=== PATIENT | female | born 1980 | race Caucasian/White ===

== ENCOUNTER 2016-11-15 14:12 | Inpatient (IN) | payer MEDICAID, OTHER ==
[2016-11-15] VITALS (10 sets, daily range): BP systolic 124–160; BP diastolic 80–90; PULSE 72–91; RESP 17–19; TEMP 97.6–98.3; O2SAT 96–99
[~2016-11-15 14:12] MED LIST: DICL75 PO; HYDR-3533 PO
--- NOTE | 2016-11-15 14:24 | PD ---
HPI Chief Complaint: Chest Pain Time Seen by Provider: 14:24 Travel History International Travel<30 days: No Contact w/Intl Traveler<30days: No Traveled to known affect area: No History of Present Illness HPI 36-year-old female came to the emergency room with history of chest pain on the left side of her chest radiating down her left arm since yesterday. Patient says the pain has been on and off. No aggravating or relieving factors. Currently she says the pain is 5 out of 10. Like an elephant sitting on her chest. Patient is a heavy smoker. There is a strong family history of coronary artery disease. Her brother of heart attack. Currently her vitals are stable. [facility] Past Medical History Narrative Medical List of her past medical, surgical and social and family history was reviewed from the nursing note. Asthma: Yes (CHILD) Diminished Hearing: No Migraines: Yes Thyroid Disease: Yes (HYPOTHYROID) : 1 Para: 1 Past Surgical History Abdominal Surgery: Yes Cardiac Surgery: No Section: Yes Cholecystectomy: Yes Ear Surgery: No Endocrine Surgery: No Eye Surgery: No Genitourinary Surgery: No Gynecologic Surgery: Yes Oral Surgery: No Prostatectomy: No Thoracic Surgery: No Other Surgery: Yes (GALLBLADDER) Social History Alcohol Use: No Tobacco Use: Yes (PACK A DAY) Substance Use: No Allergies-Medications (Allergen,Severity, Reaction): Coded Allergies: No Known Allergies (Verified , 06/09/14) Comments No known drug allergies. Reported Meds & Prescriptions Reported Meds & Active Scripts Active Diclofenac Sodium 75 Mg Tab 75 Mg PO BID PRN Lortab 5 mg/325 mg (Hydrocodone/Acetaminophen 5 mg/325 mg) 1 Tab 1 Tab PO Q6H PRN Narrative Medication List of her home medications reviewed from the nursing note. Review of Systems Except as stated in HPI: all other systems reviewed are Neg Physical Exam Narrative GENERAL: Awake, alert, anxious, moderate distress SKIN: Focused skin assessment warm/dry. Pale HEAD: Atraumatic. Normocephalic. EYES: Pupils equal and round. No scleral icterus. No injection or drainage. ENT: No nasal bleeding or discharge. Mucous membranes pink and moist. NECK: Trachea midline. No JVD. CARDIOVASCULAR: Regular rate and rhythm. No murmur appreciated. RESPIRATORY: No accessory muscle use. Clear to auscultation. Breath sounds equal bilaterally. GASTROINTESTINAL: Abdomen soft, non-tender, nondistended. Hepatic and splenic margins not palpable. MUSCULOSKELETAL: No obvious deformities. No clubbing. No cyanosis. No edema. NEUROLOGICAL: Awake and alert. No obvious cranial nerve deficits. Motor grossly within normal limits. Normal speech. PSYCHIATRIC: Appropriate mood and affect; insight and judgment normal. Data Data Last Documented VS Vital Signs Date Time Temp Pulse Resp B/P Pulse Ox O2 Delivery O2 Flow Rate FiO2 11/15/16 14:32 97 Room Air 11/15/16 14:15 97.8 91 17 160/90 Orders Electrocardiogram (11/15/16 ) Electrocardiogram (11/15/16 14:30) Basic Metabolic Panel (Bmp) (11/15/16 14:30) Ckmb (Isoenzyme) Profile (11/15/16 14:30) Complete Blood Count With Diff (11/15/16 14:30) D-Dimer (11/15/16 14:30) Magnesium (Mg) (11/15/16 14:30) Prothrombin Time / Inr (Pt) (11/15/16 14:30) Act Partial Throm Time (Ptt) (11/15/16 14:30) Troponin I (11/15/16 14:30) Chest, Single Ap (11/15/16 14:30) Ecg Monitoring (11/15/16 14:30) Bilateral Bp Monitoring (11/15/16 14:30) Iv Access Insert/Monitor (11/15/16 14:30) Oximetry (11/15/16 14:30) Oxygen Administration (11/15/16 14:30) Sodium Chloride 0.9% Flush (Ns Flush) (11/15/16 14:30) Nitroglycerin Sl (Nitrostat Sl) (11/15/16 14:30) Heparin Inj (Heparin Inj) (11/15/16 15:05) Heparin Inj (Heparin Inj) (11/15/16 15:06) Admit Order (Ed Use Only) (11/15/16 15:18) Labs Laboratory Tests Test 11/15/16 14:45 White Blood Count 12.4 TH/MM3 Red Blood Count 4.71 MIL/MM3 Hemoglobin 14.0 GM/DL Hematocrit 42.5 % Mean Corpuscular Volume 90.2 FL Mean Corpuscular Hemoglobin 29.7 PG Mean Corpuscular Hemoglobin 32.9 % Concent Red Cell Distribution Width 13.4 % Platelet Count 206 TH/MM3 Mean Platelet Volume 8.9 FL Neutrophils (%) (Auto) 63.1 % Lymphocytes (%) (Auto) 27.4 % Monocytes (%) (Auto) 5.9 % Eosinophils (%) (Auto) 3.1 % Basophils (%) (Auto) 0.5 % Neutrophils # (Auto) 7.8 TH/MM3 Lymphocytes # (Auto) 3.4 TH/MM3 Monocytes # (Auto) 0.7 TH/MM3 Eosinophils # (Auto) 0.4 TH/MM3 Basophils # (Auto) 0.1 TH/MM3 CBC Comment DIFF FINAL Differential Comment Prothrombin Time 11.0 SEC Prothromb Time International 1.0 RATIO Ratio Activated Partial 30.3 SEC Thromboplast Time D-Dimer Quantitative (PE/DVT) 0.28 MG/L FEU Sodium Level 138 MEQ/L Potassium Level 3.8 MEQ/L Chloride Level 105 MEQ/L Carbon Dioxide Level 26.1 MEQ/L Anion Gap 7 MEQ/L Blood Urea Nitrogen 9 MG/DL Creatinine 0.73 MG/DL Estimat Glomerular Filtration 91 ML/MIN Rate Random Glucose 101 MG/DL Calcium Level 8.8 MG/DL Magnesium Level 2.1 MG/DL Total Creatine Kinase 59 U/L Troponin I 0.05 NG/ML MDM Medical Decision Making Medical Screen Exam Complete: Yes Emergency Medical Condition: Yes Medical Record Reviewed: Yes Interpretation(s) Twelve-lead EKG was reviewed by me. Normal sinus rhythm, normal axis, nonspecific ST-T wave changes. Heart rate of 72 bpm. Differential Diagnosis Non-STEMI, ACS, PE Narrative Course 3:12 PM patient chest pain just got worse. A repeat EKG was done which shows inferior lead ST elevations. I contacted Dr. Urrutia who is on-call for STEMI. Patient will be going to the [facility] emerg[facility]. Catheter team has been called. Critical Care Narrative Aggregate critical care time was 30 minutes. Time to perform other separately billable procedures was not included in the critical care time. My time did not include minutes spent treating any other patients simultaneously or on activities that did not directly contribute to the patient's treatment. The services I provided to this patient were to treat and/or prevent clinically significant deterioration that could result in: STEMI, heparin bolus I provided critical care services requiring my management, as noted below: Chart data review, documentation time, medication orders and management, vital sign assessments/reviewing monitor data, ordering and reviewing lab tests, ordering and interpreting/reviewing x-rays and diagnostic studies, care of the patient and discussion of the patient with the admitting physicians. Procedures EKG Prior to Arrival: No Physician Communication Physician Communication Dr. Urrutia Diagnosis Primary Impression: STEMI (ST elevation myocardial infarction) Qualified Code: I21.3 - ST elevation myocardial infarction (STEMI), unspecified artery Admitting Information Admitting Physician Requests: Admit Jaleesa Livingston MD November 15, 2016 14:24
[2016-11-15] MEDS ORDERED: SODIUM CHLORIDE 0.9% FLUSH 10 ML FLUSH IVF PRN (14:30)
[2016-11-15] MEDS ORDERED: NITROGLYCERIN 0.4 MG SL 25 TABS/BTL SL ONE (14:30)
--- NOTE | 2016-11-15 14:47 | RADRPT ---
EXAM DATE/TIME: 11/15/2016 14:42 [place] COMPARISON: CHEST SINGLE AP, April 23, 2013, 16:03. INDICATIONS : Upper chest pain. MEDICAL HISTORY : None. SURGICAL HISTORY : None. ENCOUNTER: Initial ACUITY: 1 day PAIN SCORE: 8/10 LOCATION: Bilateral upper chest FINDINGS: A single view of the chest demonstrates the lungs to be symmetrically aerated without evidence of mas s, infiltrate or effusion. The cardiomediastinal contours are unremarkable. Osseous structures are intact. CONCLUSION: No acute disease. Macho Joshua MD on November 15, 2016 at 14:45 Board Certified Radiologist. This report was verified electronically.
[2016-11-15 14:57] LABS: AUTOMATED NEUTROPHIL # 7.8 TH/MM3 (1.8-7.7); BASOPHIL # 0.1 TH/MM3 (0-0.2); BASOPHIL % 0.5 % (0.0-2.0); EOSINOPHIL # 0.4 TH/MM3 (0-0.4); EOSINOPHIL % 3.1 % (0.0-4.0); HEMATOCRIT 42.5 % (35.0-46.0); HEMO FLAGS DIFF FINAL; LYMPH % 27.4 % (9.0-44.0); LYMPHOCYTE # 3.4 TH/MM3 (1.0-4.8); MEAN CELL VOLUME 90.2 FL (80.0-100.0); MEAN CORPUSCULAR HEMOGLOBIN 29.7 PG (27.0-34.0); MEAN CORPUSCULAR HGB CONC 32.9 % (32.0-36.0); MONO % 5.9 % (0.0-8.0); NEUT % 63.1 % (16.0-70.0); PLATELET COUNT 206 TH/MM3 (150-450); RED BLOOD COUNT 4.71 MIL/MM3 (4.00-5.30); RED CELL DISTRIBUTION WIDTH 13.4 % (11.6-17.2); WHITE BLOOD COUNT 12.4 TH/MM3 (4.0-11.0)
[2016-11-15] MEDS ORDERED: HEPARIN SODIUM - IV 10,000 UNITS/10 ML VIAL ONE (15:05)
[2016-11-15] MEDS ORDERED: HEPARIN SODIUM - IV 10,000 UNITS/10 ML VIAL IV STA (15:06)
[2016-11-15 15:19] LABS: BICARBONATE 26.1 MEQ/L (21.0-32.0); MAGNESIUM 2.1 MG/DL (1.5-2.5); POTASSIUM 3.8 MEQ/L (3.5-5.1)
[2016-11-15] MEDS ORDERED: IOHEXOL 350 MG/ML 100 ML BTL (for Cath Lab) OTHER ONE (15:30)
[2016-11-15] MEDS ORDERED: HEPARIN-NS/PF INJ 500 ML ONE (15:39)
[2016-11-15 15:40] LABS: APTT (PATIENT) 30.3 SEC (24.3-30.1)
[2016-11-15] MEDS ORDERED: MIDAZOLAM HCL 2 MG/2 ML VIAL ONE (15:42)
[2016-11-15] MEDS ORDERED: STERILE WATER FOR INJECTION 10 ML VIAL ONE (16:02)
[2016-11-15] MEDS ORDERED: BIVALIRUDIN 250 MG VIAL ONE (16:02)
[2016-11-15] MEDS ORDERED: NITROGLYCERIN INJ 5 ML ONE (16:30)
[2016-11-15] MEDS ORDERED: NITROGLYCERIN-DEXTROSE INJ 250 ML ONE (16:30)
[2016-11-15] MEDS ORDERED: TICAGRELOR 90 MG TAB PO ONE (16:33)
[2016-11-15] MEDS ORDERED: BIVALIRUDIN INJ 250 MG in SODIUM CHLORIDE 0.9% INJ 50 ML IV SCH (16:50)
[2016-11-15] MEDS ORDERED: SODIUM CHLOR 0.9% 1000 ML INJ 1,000 ML IV SCH (16:50)
--- NOTE | 2016-11-15 16:59 | CATHPROC ---
[employer] HIS Report Study Information Study Number Admission Scheduled Start Study Start [id number] 11/15/2016 11/15/2016 Nov 15 2016 3:48PM Referring Institution Admit Source Facility Department 1 Emergency department [facility] - Occ Ther Physician and Clinical Staff Initial Miguel Ángel Mccollum Volunteer Services Director Dayne Fu,Marina García RN Recorder Alissa Sharma,(R) Scrub Phill Carlisle RCIS(BS) Procedures Performed Procedure Location (Site) Vessel Name Angiogram LV LV Ventricle Coronary Angiograms LCA Left Coronary Coronary Angiograms RCA Right Coronary Drug Eluting Inflatio OM1 Mid CIRC L Heart Cath PTCA OM1 Mid CIRC PTCA ADD ON'S Wire insertion Fem Art (right) Femoral Art Equipment Time Compliance Engineer Products Description Size Mfg Part Number Used/Scraped WIRE, BALANCE MIDDLEWEIGHT [id number] 16:09 [employer] 190CM Used 190CM *[id number] TRANSDUCER, TRUWAVE 15:49 CURRY SOTO * [id number] Used W/STOCKCOCK [id number] *[id number] [id number] *[id number] PIGTAIL ANG. 145 INFINITI [id number] CATHETER *[id number] 16:31 DAIG/[facility]. [facility] MEDICAL ANGIOSEAL, FR6 VIP FR 6 [id number] Used [id number] 15:49 MEDLINE INDUSTRIES PACK, CCL CUSTOM * Used *[id number] 15:49 MEDLINE PACER PEN, SKIN DUAL W/ RULER * [id number] Used [id number] 16:09 MEDTRONIC BALLOON, 2.0 X 20MM EUPHORA 20MM Used *[id number] STENT, 2.75 22 RESOLUTE [id number] 16:19 MEDTRONIC 2.75 22 Used INTEGRITY RX *[id number] STENT, 2.75 22 RESOLUTE [id number] 16:20 MEDTRONIC 2.75 22 Used INTEGRITY RX *[id number] 16:09 [employer] MEDICAL 30 BECK INDEFLATOR Used *[id number] 15:49 [employer] MEDICAL SHEATH, FR6.5 PRELUDE 11CM FR 6.5 038ACT Used *[id number] 15:49 [employer] MEDICAL WIRE, 3MMJ .035 180CM 180CM [id number] Used [id number] 15:49 NAMIC MANIFOLD, 4 PORT * Used *[id number] 16:41 [employer] OMNIPAQUE, 300 MG, 100ML 100ML [id number] Used 15:49 [employer]COMED OMNIPAQUE, 350 MG, 100ML 100ML [id number] Used [id number] 15:49 [facility] BLANKET,WARM AIR CCL * Used *[id number] Equipment Model, Serial, Lot Number and Expiration Data Description Model Number Serial Number Lot Number Expiration Date STENT, 2.75 22 RESOLUTE [id number] 07-27-2018 INTEGRITY RX History: Risk Factors Family History of Hypertension Dyslipidemia Previous MO Previous Heart Failure Premature CAD Yes Yes Yes No No Prior Valve Prior PCI Prior CABG Surgery No No No Cerebrovascular Peripheral Artery Chronic Lung On Dialysis Diabetes Disease Disease Disease No No No No No History: Symptoms/Diagnosis Selection Items Chest pain History: Stress Tests Stress or Imaging Studies Performed No History: Other Disease Selection Items HTN History: Other Current Smoker Method Yes Cigarettes Labs Hgb (g/dl) Hct (%) RBC (MIL/MM3) WBC (l/cumm) Platelets (thousands) 12.00-18.00 37.00-55.00 4.80-6.20 4.80-10.80 140.00-450.00 14.0 42.5 4.7 12.4 206 Glucose (mg/dl) BUN (mg/dl) Creatinine (mg/dl) BUN:Creatinine (1:x) 60.00-110.00 8.00-20.00 0.10-9.00 10.00-20.00 101 9 0.7 12.9 Na (meq/l) K (meq/l) Cl (meq/l) CO2 (mmol/L) Ca (mg/dl) 138.00-146.00 3.80-5.10 101.00-111.00 23.00-30.00 9.00-10.50 138 3.8 105 26.1 8.8 PT (sec) PTT (sec) INR (PTT:PT) 9.40-11.40 25.10-32.70 0.50-2.00 11 30.3 1 CPK-MB (ng/ML) 0.00-7.00 Not Drawn Medication Medication Total Dose (Bolus/Oral) Medication Total Dosage/Unit 1% XYLOCAINE 20 mL ANGIOMAX BOLUS 20 mL BRILLINTA 180 mg VERSED 1 mg Medications (Bolus/Oral) Medication Time Given Dosage/Unit Administered By Reason VERSED 11/15/2016 3:52:40 PM 1 mg Dayne Fu 1 mg VERSED given in lab by Dayne Fu RN via Peripheral IV. 1% XYLOCAINE 11/15/2016 3:57:13 PM 20 mL Miguel Ángel Urrutia Patient arrived on 20 mL 1% XYLOCAINE given by Miguel Ángel Urrutia in Right Groin via Subcutaneous. Ordered by Miguel Ángel Urrutia. ANGIOMAX BOLUS 11/15/2016 4:05:39 PM 20 mL Marina Parish 20 mL ANGIOMAX BOLUS given in lab by Marina Parish, ALEX via Peripheral IV. Ordered by Miguel Ángel Urrutia . BRILLINTA 11/15/2016 4:43:54 PM 180 mg Marina Parish 180 mg BRILLINTA given in lab by Marina Parish RN in Per mouth via Oral. Ordered by Miguel Ángel Urrutia . Medication (Drip) Medication Time Given Dosage/Unit Concentration/Unit Diluent (ml) Solution ANGIOMAX DRIP 11/15/2016 4:06:58 PM 1.756 mg/kg/hr 250 mg 50 NaCl .9 1.756 mg/kg/hr ANGIOMAX DRIP given in lab by Marina Parish RN via Peripheral IV. Pump/Drip Flow = 46.6 ml/hr using NaCl .9 with a concentration of 250 mg in 50 ml. Ordered by Miguel Ángel Urrutia. IV Solutions 11/15/2016 3:54:45 PM 0 mL (IV) 500 NaCl .9 Patient arrived on IV Solutions in Right Groin via Peripheral IV. Pump/Drip Flow = 20 ml/hr using NaC l .9. Ordered by Miguel Ángel Urrutia. NITROGLYCERIN DRIP 11/15/2016 4:31:01 PM 16.667 mcg/min 50 mg 250 D5W 16.667 mcg/min NITROGLYCERIN DRIP given in lab by Marina Parish RN in Right Groin via Peripheral IV. Pump/Drip Flow = 5 ml/hr using D5W with a concentration of 50 mg in 250 ml. Ordered by Miguel Ángel Urrutia. Initial Case Assessment Cardiovascular HR Rhythm NIBP Chest Pain 80 REG-PVC 141/87 5 Edema Present Skin color Skin Mild Normal Warm Circulatory - Right Pulses Dorsalis Pedis Femoral 3 1 Scale (0,1,2,3,4,d) Circulatory - Left Pulses Dorsalis Pedis Femoral 3 1 Scale (0,1,2,3,4,d) Circulatory - Lower Extremities Color Lower Right Color Lower Left Normal Normal Neurological State Oriented to time-place- Alert Moves all extremities person Respiration - General Respiration Rate SpO2 (%) O2 (lpm) (B/min) 20 96 2 Final Case Assessment Cardiovascular HR Rhythm NIBP Chest Pain 79 REG-PVC 150/84 1 Edema Present Skin color Skin None Normal Warm Circulatory - Right Pulses Dorsalis Pedis Femoral 3 1 Scale (0,1,2,3,4,d) Circulatory - Left Pulses Dorsalis Pedis Femoral 3 1 Scale (0,1,2,3,4,d) Circulatory - Lower Extremities Color Lower Right Color Lower Left Normal Normal Neurological State Oriented to time-place- Alert Moves all extremities person Respiration - General Respiration Rate SpO2 (%) O2 (lpm) (B/min) 18 95 2 Chronological Log Time Study Chronological Log 15:30:41 Patient arrived via Bed. 15:30:42 MD arrived. 15:31:48 Patient Name, D.O.B, / Armband Verified By R.N. 15:32:52 Consent signed by the physician and the patient and verified by the Occ Ther staff. 15:33:56 Pre-op and post- op instructions given; patient acknowledges understanding of instructions. Vitals capture started with the following parameters, Patient=Adult, Interval=5 min, Initial Pr xpyxeh=359 mmHg, 15:47:37 Deflation Rate=5 mmHg 15:48:14 HR=81 bpm, HXTX=667/92 mmhg, SpO2=97.0 %, Resp=20 B/min, Pain=5, Alcon=10, Glover=3 Time Out. Correct patient, correct procedure,correct physician, ,power injector loaded or not l oaded with contrast with 15:51:48 surgical team present. Time Out Concurred by MD, individual staff and MANAGER OPERATIONS AND PROCUREMENT in procedure 15:52:40 1 mg VERSED given in lab by Dayne Fu, RN via Peripheral IV. 15:53:13 HR=81 bpm, DFNW=218/87 mmhg, SpO2=97.0 %, Resp=0 B/min, Pain=5, Alcon=10, Glover=3 15:53:20 Case Start 15:54:18 Skin Breakdown-NONE 15:54:18 Patient has been NPO for More than 6Hrs. 15:54:22 Disposable Defibrillator Pads Placed On Patient. 15:54:24 A # 20 IV was noted in the Antecubital (right). Grade = 0 15:54:36 A # 20 IV was noted in the Forearm (left). Grade = 0 Patient arrived on IV Solutions in Right Groin via Peripheral IV. Pump/Drip Flow = 20 ml/hr usi ng NaCl .9. Ordered by 15:54:45 Miguel Ángel Urrutia. 15:55:57 Bilateral groins prepped with 2% chlorhexidine, and with a 3 min. waiting time. 15:56:03 Pressure channel 1 zeroed. Assessment: Initial Case, HR=80 BPM, Rhythm=REG-PVC, FDUS=133/87 mmhg, Chest Pain=5, Edema=Mild , Color=Normal, Skin = Warm Right Pulses: Elian Ped=3, Femoral=1 Left Pulses: Elian Ped=3, Femoral=1 15:56:09 Lower Right Extremities: Color=Normal Lower Left Extremities: Color=Normal Neurological: State=Alert, Ox3, FONSECA Respiration: Resp=20 B/min, SpO2=96 %, O2=2 lpm Patient arrived on 20 mL 1% XYLOCAINE given by Miguel Ángel Urrutia in Right Groin via Subcutaneous. O rdered by Renan, 15:57:13 Miguel Ángel. 15:57:23 POWER INJECTOR LOADED NOW BY Ariadne PARISH AND VERIFIED BY Guy CARLISLE 15:57:47 Reference ECG taken 15:58:12 HR=82 bpm, BUXW=928/85 mmhg, SpO2=97.0 %, Resp=22 B/min, Pain=5, Alcon=10, Glover=3 15:59:23 Access site was Right Femoral Artery.RT 15:59:30 A WIRE, 3MMJ .035 180CM 180CM was inserted via Fem Art (right). 15:59:33 A SHEATH, FR6.5 PRELUDE 11CM FR 6.5 was advanced into the Fem Art (right) using the Percuta neous technique. Recorded Pressure: Ao, HR=80, Condition=Condition 1 16:01:44 (Aorta) Ao 128/78/100 A JL 4.0 INFINITI CATHETER FR 6 was advanced over a wire. OMNIPAQUE, 350 MG, 100ML 100ML was us ed for 16:02:02 injections. 16:02:59 The LCA was injected and visualized at various angles. OMNIPAQUE, 350 MG, 100ML 100ML used . 16:03:15 HR=74 bpm, TSJK=762/75 mmhg, SpO2=96.0 %, Resp=22 B/min, Pain=5, Alcon=10, Glover=3 16:04:31 Catheter was removed A 3DRC INFINITI CATHETER FR 6 was advanced over a wire. OMNIPAQUE, 350 MG, 100ML 100ML was used for 16:04:41 injections. 16:05:39 20 mL ANGIOMAX BOLUS given in lab by Marina Parish RN via Peripheral IV. Ordered by Miguel Ángel Christie. 16:06:15 The RCA was injected and visualized at various angles. OMNIPAQUE, 350 MG, 100ML 100ML used . 1.756 mg/kg/hr ANGIOMAX DRIP given in lab by Marina Parish RN via Peripheral IV. Pump/Drip Flow = 46.6 ml/hr 16:06:58 using NaCl .9 with a concentration of 250 mg in 50 ml. Ordered by Miguel Ángel Urrutia. 16:07:40 Catheter was removed A XB 3.5 GUIDE CATHETER FR 6 was advanced over a wire. OMNIPAQUE, 350 MG, 100ML 100ML was used for 16:08:01 injections. 16:08:12 HR=90 bpm, PHEW=260/83 mmhg, SpO2=95.0 %, Resp=25 B/min, Pain=5, Alcon=10, Glover=3 16:08:45 OMNIPAQUE, 350 MG, 100ML 100ML and 30 BECK INDEFLATOR added. 16:12:26 A WIRE, BALANCE MIDDLEWEIGHT 190CM 190CM was inserted via Fem Art (right). 16:13:11 HR=84 bpm, OVUK=271/93 mmhg, Resp=27 B/min, Pain=5, Alcon=10, Glover=3 16:13:51 Interventional wire has crossed the lesion A BALLOON, 2.0 X 20MM EUPHORA 20MM was inserted over WIRE, BALANCE MIDDLEWEIGHT 190CM 190CM via the 16:15:33 OM1 Mid. A BALLOON, 2.0 X 20MM EUPHORA 20MM over a WIRE, BALANCE MIDDLEWEIGHT 190CM 190CM in the OM1 Mid was 16:16:13 inflated using a 30 BECK INDEFLATOR at 12 beck for 30 sec. 16:18:14 HR=68 bpm, OBHW=259/70 mmhg, SpO2=95.0 %, Resp=23 B/min, Pain=5, Alcon=10, Glover=3 16:18:59 Balloon Removed. A STENT, 2.75 22 RESOLUTE INTEGRITY RX 2.75 22 was advanced through a XB 3.5 GUIDE CATHETER FR 6 over a 16:19:25 WIRE, BALANCE MIDDLEWEIGHT 190CM 190CM. A STENT, 2.75 22 RESOLUTE INTEGRITY RX 2.75 22 was deployed using a 30 BECK INDEFLATOR at 12 beck ospheres 16:20:31 for 20 seconds in the OM1 Mid. 16:23:07 Delivery device removed 16:23:11 HR=92 bpm, ZEVU=885/92 mmhg, SpO2=95 %, Resp=6 B/min, Pain=5, Alcon=10, Glover=3 16:23:11 The LCA was injected and visualized at various angles. OMNIPAQUE, 350 MG, 100ML 100ML used . 16:24:38 Wire removed 16:24:40 Catheter was removed A PIGTAIL ANG. 145 INFINITI CATHETER FR 6 was advanced over a wire. OMNIPAQUE, 350 MG, 100ML 10 0ML was 16:25:40 used for injections. Recorded Pressure: LV, HR=87, Condition=Condition 1 16:26:44 (Left Ventricle) LV 124/11/20 16:27:12 The LV was injected at 10 cc/sec for a total of 35. OMNIPAQUE, 350 MG, 100ML 100ML used. Recorded Pressure: LV, Ao, HR=79, Condition=Condition 1 16:28:06 (Left Ventricle) LV 133/14/16, (Aorta) Ao 128/74/98 16:28:15 HR=45 bpm, BSNV=652/84 mmhg, SpO2=94.0 %, Resp=22 B/min, Pain=5, Alcon=10, Glover=3 16:28:35 Catheter was removed 16:28:44 An injection in the Fem Art (right) was made through the SHEATH, FR6.5 PRELUDE 11CM FR 6.5. Assessment: Final Case, HR=79 BPM, Rhythm=REG-PVC, NNNC=262/84 mmhg, Chest Pain=1, Edema=None, Color=Normal, Skin = Warm Right Pulses: Elian Ped=3, Femoral=1 Left Pulses: Elian Ped=3, Femoral=1 16:29:49 Lower Right Extremities: Color=Normal Lower Left Extremities: Color=Normal Neurological: State=Alert, Ox3, FONSECA Respiration: Resp=18 B/min, SpO2=95 %, O2=2 lpm 16:30:36 Catheter(s) removed without difficulty 16:30:37 ANGIOSEAL, FR6 VIP FR 6 placement in the Fem Art (right) 16.667 mcg/min NITROGLYCERIN DRIP given in lab by Marina Parish, RN in Right Groin via Perip heral IV. 16:31:01 Pump/Drip Flow = 5 ml/hr using D5W with a concentration of 50 mg in 250 ml. Ordered by Miguel Ángel Urrutia. 16:33:16 HR=80 bpm, MESM=131/88 mmhg, SpO2=95.0 %, Resp=21 B/min, Pain=5, Alcon=10, Glover=3 16:35:40 Case End 16:38:13 HR=84 bpm, RORB=402/92 mmhg, SpO2=96.0 %, Resp=23 B/min, Pain=5, Alcon=10, Glover=3 16:40:24 Sterile dressing applied to site 16:40:25 No case complications noted. 16:40:25 Cine recording checked. 16:40:27 Bedside Report will be given. 16:40:28 Implantable Device card placed in patient's chart. 16:40:30 Contrast Scanned 16:43:12 HR=85 bpm, FKDY=178/94 mmhg, SpO2=94.0 %, Resp=28 B/min, Pain=5, Alcon=10, Glover=3 16:43:54 180 mg BRILLINTA given in lab by Marina Parish, RN in Per mouth via Oral. Ordered by Miguel Ángel Christie. 16:44:19 In the Fem Art (right) the SHEATH, FR6.5 PRELUDE 11CM FR 6.[address] by Phill Carlisle RCIS(BS). 16:44:43 A Left Heart Cath was performed. 16:44:46 Patient moved to stretcher 16:44:48 Clinical correlaton risk stratification. 16:48:13 HR=77 bpm, PPFC=020/94 mmhg, SpO2=95.0 %, Resp=25 B/min, Pain=5, Alcon=10, Glover=3 End Study - Contrast Media Used In Study Contrast Total Opened (mL) Total Used (mL) Total Wasted (mL) Omnipaque 125 125 0 End Study - Maximum Contrast Load Max Contrast Load (mL) 948.1 End Study - Radiation Exposure Fluoro Time (minutes) 6.4 End Study - Sheaths Sheaths Pulled By Sheath Hold Time (min) Miguel Ángel Urrutia 1 End Study - Patient Disposition Complications Transferred To Interventional Outcome No Critical Care Bed successful
[2016-11-15] MEDS ORDERED: ACETAMINOPHEN 325 MG TAB PO PRN (17:00)
[2016-11-15] MEDS ORDERED: ONDANSETRON HCL 4 MG/2 ML VIAL IV PRN (17:00)
[2016-11-15] MEDS ORDERED: oxyCODONE/ACETAMINOPHEN 5 MG/325 MG TAB PO PRN (17:00)
[2016-11-15] MEDS ORDERED: MORPHINE SULFATE 4 MG/ML INJ IV PUSH PRN (17:00)
[2016-11-15] MEDS ORDERED: TEMAZEPAM 15 MG CAP PO PRN (17:00)
--- NOTE | 2016-11-15 17:07 | MH ---
cc: DIYA CAT M.D. DATE OF ADMISSION: 11/15/2016 CHIEF COMPLAINT: Chest pain. HISTORY OF PRESENT ILLNESS: Lien Crenshaw is a 36-year-old female with an acute inferior STEMI. Initial EKG did not show S-T elevation but the second EKG showed inferior S-T elevation. She has smoked a pack a day for eighteen years. She lost a brother due to a heart attack. Both of her parents have heart disease. She was brought in for the acute onset of chest pain, the symptoms since yesterday. PAST MEDICAL HISTORY: Her past medical history includes: 1. Cholecystectomy. 2. Hypothyroidism. SOCIAL HISTORY: She is single with a son. ALLERGIES: None known. MEDICATIONS Her medications include : 1. Diclofenac. 2. Lortab. REVIEW OF SYSTEMS: Her review of systems is otherwise noncontributory. PHYSICAL EXAMINATION: GENERAL: Physical exam reveals a severely obese white female in moderate distress. VITAL SIGNS: Charted. HEAD, EYES, EARS, NOSE, THROAT: Exam unremarkable. NECK: No JVD, no bruits. CHEST: Clear to auscultation. CARDIAC: S1, S2, regular rate and rhythm without murmurs or gallops. ABDOMEN: Abdomen is severely obese. No tenderness. EXTREMITIES: Reveal no clubbing, cyanosis or edema. Pulses are intact. SKIN: Shows multiple tattoos. NEUROLOGIC: Alert and oriented. EKGS: EKG shows S-T elevation inferiorly. LABORATORY DATA: Charted. IMPRESSION: Acute inferior STEMI. The patient has had stenting of the posterolateral branch of the circumflex artery. Her ejection fraction is about 45%. PLAN: 1. Aspirin 81 milligrams plus Brilinta. 2. Will introduce TEOFILO inhibitors and beta blockers as hemodynamics permit. 3. Will initiate statin therapy. 4. Check lipid values. 5. She will be counselled to quit smoking. MD MARYANA Giron/ROEL /4:51 PM /5:02 PM
--- NOTE | 2016-11-15 17:15 | MA ---
cc: DIYA CAT M.D. DATE: 11/15/2016. PROCEDURE PERFORMED: Left heart catheterization, left ventriculography, coronary angiography, balloon angioplasty and stenting of the left posterolateral branch and right femoral angiography with Angio-Seal placement. DESCRIPTION OF THE PROCEDURE IN DETAIL: The patient was brought to the cardiac irrigation laborer under emergency conditions. Using 1% lidocaine for local anesthesia, a 6-Cameroonian sheath was inserted in the right femoral artery. Femoral pulse was weak and very deep, but this was accomplished without difficulty. A left coronary angiography was then performed using a left 4 Corina catheter. Right coronary angiography was completed using a 3DRC catheter. I then used an XB 3.5 guiding catheter to engage the left main. Intravenous Angiomax was started. I wired the circumflex with a BMW wire and predilated with a 2 mm balloon and then stented utilizing a 2.75 x 22 mm Resolute stent at 12 atmospheres. An outstanding angiographic result was achieved. Next, an angled pigtail catheter was used to measure left ventricular pressure followed by left ventriculography and then a pullback. Angiography was then obtained of the right femoral artery via the sheath followed by uncomplicated Angio-Seal placement. There were no complications. FINDINGS: 1. HEMODYNAMICS: Left ventricular pressure is 133/14 with an end-diastolic pressure of 16. Aortic pressure is 128/74 with mean of 98. 2. LEFT VENTRICULOGRAPHY: The left ventriculography shows diaphragmatic akinesis. The ejection fraction appears to be 40% to 45%, probably closer to 45% and is co-dominant. 3. CORONARY ANGIOGRAPHY: The left main coronary artery has a slight degree of irregularities. It trifurcates into the left anterior descending, a large ramus intermediate branch and a codominant circumflex vessel. The left anterior descending has about 20% ostial disease. There is also a 60% to 70% mid stenosis and an area with some tortuosity. The ramus intermediate branch has 60% to 70% ostial disease. The circumflex artery has 30% ostial disease. It gives off what looks to be an obtuse marginal branch, but it courses into the left posterolateral branch territory. It has a long 99% stenosis before the posterolateral branch. The right coronary artery is codominant. It gives off the posterior descending artery branch and AV edilberto branch. It has a 60% to 70% proximal stenosis. RESULTS OF STENTING: Following stenting of the left posterolateral branch, a 0% residual stenosis had been achieved with ROSA III flow. There was ROSA II flow at the start. CONCLUSIONS: 1. Mildly elevated left ventricular end-diastolic pressure. 2. Mildly impaired left ventricular function. 3. Four-vessel coronary artery disease involving the left anterior descending, ramus intermediate branch, circumflex artery and right coronary artery. 4. Critical stenosis of the posterolateral branch of the circumflex artery. 5. Successful drug-eluting stent of the posterolateral branch. RECOMMENDATIONS: 1. Quit smoking. 2. Aspirin and Brilinta. 3. Will introduce TEOFILO inhibitor and beta levi as hemodynamics permit. 4. Check lipid values. 5. Initiate statin therapy. Anticipated hospital stay is two to three days. MD MARYANA Giron/ROEL /4:46 PM /5:08 PM
[2016-11-15] MEDS: CARVEDILOL 3.125 MG TAB PO SCH (19:38)
[2016-11-15] MEDS ORDERED: ATORVASTATIN 10 MG TAB PO SCH (21:00)
[2016-11-16] VITALS (25 sets, daily range): BP systolic 117–133; BP diastolic 70–90; PULSE 34–97; RESP 16–18; TEMP 97.9–98.9; O2SAT 95–97
[2016-11-16 05:10] LABS: AUTOMATED NEUTROPHIL # 10.5 TH/MM3 (1.8-7.7); BASOPHIL # 0.1 TH/MM3 (0-0.2); BASOPHIL % 0.4 % (0.0-2.0); EOSINOPHIL # 0.3 TH/MM3 (0-0.4); EOSINOPHIL % 2.2 % (0.0-4.0); HEMO FLAGS DIFF FINAL; LYMPH % 20.5 % (9.0-44.0); MEAN CELL VOLUME 89.3 FL (80.0-100.0); MEAN CORPUSCULAR HGB CONC 33.6 % (32.0-36.0); MONO % 5.6 % (0.0-8.0); NEUT % 71.3 % (16.0-70.0); PLATELET COUNT 216 TH/MM3 (150-450); RED CELL DISTRIBUTION WIDTH 13.3 % (11.6-17.2); WHITE BLOOD COUNT 14.8 TH/MM3 (4.0-11.0)
[2016-11-16 05:38] LABS: ALKALINE PHOSPHATASE 94 U/L (45-117); ALT (GPT) 26 U/L (10-53); ANION GAP 7 MEQ/L (5-15); AST (GOT) 59 U/L (15-37); BICARBONATE 25.3 MEQ/L (21.0-32.0); BLOOD UREA NITROGEN 6 MG/DL (7-18); CHLORIDE 106 MEQ/L (98-107); CREATINE KINASE 464 U/L (26-192); GLOMERULAR FILTRATION RATE 99 ML/MIN (>89); HDL CHOLESTEROL 27.5 MG/DL (40.0-60.0); LDL CHOLESTEROL 146 MG/DL (0-99); POTASSIUM 3.8 MEQ/L (3.5-5.1); SODIUM (NA) 138 MEQ/L (136-145); TOTAL BILIRUBIN ADULT 0.8 MG/DL (0.2-1.0)
[2016-11-16 06:12] LABS: CKMB 57.7 NG/ML (0.5-3.6)
[2016-11-16] MEDS: LISINOPRIL 5 MG TAB PO SCH (08:10)
[2016-11-16] MEDS: TICAGRELOR 90 MG TAB PO SCH ×2 (08:10→21:18)
[2016-11-16] MEDS: CARVEDILOL 3.125 MG TAB PO SCH ×2 (08:10→21:18)
[2016-11-16] MEDS: ASPIRIN 81 MG CHEW TAB PO SCH (08:11)
[2016-11-16] MEDS ORDERED: POTASSIUM CHLORIDE 20 MEQ CONTROLLED RELEASE TAB PO ONE (09:30)
--- NOTE | 2016-11-16 09:32 | PD.CARD.PN ---
Subjective Subjective Remarks no angina, no complaints Objective Medications Current Medications Medications (Trade) Dose Ordered Sig/Pily Route Start Time Stop Time Status Last Admin (NS Flush) 2 ml UNSCH PRN IVF 11/15/16 14:30 (Tylenol) 325 mg Q4H PRN PO 11/15/16 17:00 11/15/16 19:38 (Percocet 5-325 Mg) 1 tab Q4H PRN PO 11/15/16 17:00 (Morphine Inj) 2 mg Q30M PRN IV PUSH 11/15/16 17:00 (Restoril) 15 mg HS PRN PO 11/15/16 17:00 (Aspirin Chew) 81 mg DAILY PO 11/16/16 09:00 11/16/16 08:11 (Brilinta) 90 mg BID PO 11/16/16 09:00 11/16/16 08:10 (Zofran Inj) 4 mg Q4H PRN IV 11/15/16 17:00 (Coreg) 3.125 mg BID PO 11/15/16 21:00 11/16/16 08:10 (Prinivil) 5 mg DAILY PO 11/16/16 09:00 11/16/16 08:10 (Lipitor) 10 mg HS PO 11/15/16 21:00 11/15/16 19:38 Vital Signs / I&O Vital Signs Date Time Temp Pulse Resp B/P Pulse Ox O2 Delivery O2 Flow Rate FiO2 11/16/16 06:00 77 11/16/16 05:00 69 11/16/16 04:00 74 11/16/16 03:00 98.6 73 18 132/82 97 11/16/16 03:00 74 11/16/16 02:00 70 11/16/16 01:00 67 11/16/16 00:00 65 11/15/16 23:00 98.3 73 18 129/82 96 11/15/16 23:00 82 11/15/16 22:00 78 11/15/16 21:00 72 11/15/16 20:00 72 11/15/16 19:15 98.1 77 18 124/80 98 11/15/16 19:15 75 11/15/16 18:00 85 11/15/16 17:12 97.8 82 19 125/85 96 11/15/16 17:00 97.6 82 19 125/85 96 11/15/16 17:00 77 11/15/16 15:24 24 11/15/16 14:32 97 Room Air 11/15/16 14:32 97 11/15/16 14:15 97.8 91 17 160/90 99 I/O 11/15/16 11/15/16 11/15/16 11/16/16 11/16/16 11/16/16 07:00 15:00 23:00 07:00 15:00 23:00 Intake Total 1000 ml 240 ml Output Total 2000 ml Balance 1000 ml -1760 ml Intake Oral 240 ml IV Total 1000 ml Output Urine Total 2000 ml # Voids 2 # Bowel Movements 0 Physical Exam GENERAL: Well developed, well nourished. No acute distress. HEENT: Jugular venous pressure is normal. CHEST: Lungs clear to auscultation bilaterally. Unlabored respiratory effort. CARDIAC: Regular rate and rhythm without S3, S4, or murmur. ABDOMEN: Soft, nontender, no hepatosplenomegaly. Bowel sounds present. EXTREMITIES: No clubbing, cyanosis, or edema. Right groin without bruising or hematoma Laboratory Laboratory Tests Test 11/15/16 11/16/16 14:45 04:35 White Blood Count 12.4 TH/MM3 14.8 TH/MM3 Red Blood Count 4.71 MIL/MM3 4.70 MIL/MM3 Hemoglobin 14.0 GM/DL 14.1 GM/DL Hematocrit 42.5 % 42.0 % Mean Corpuscular Volume 90.2 FL 89.3 FL Mean Corpuscular Hemoglobin 29.7 PG 30.0 PG Mean Corpuscular Hemoglobin 32.9 % 33.6 % Concent Red Cell Distribution Width 13.4 % 13.3 % Platelet Count 206 TH/MM3 216 TH/MM3 Mean Platelet Volume 8.9 FL 9.3 FL Neutrophils (%) (Auto) 63.1 % 71.3 % Lymphocytes (%) (Auto) 27.4 % 20.5 % Monocytes (%) (Auto) 5.9 % 5.6 % Eosinophils (%) (Auto) 3.1 % 2.2 % Basophils (%) (Auto) 0.5 % 0.4 % Neutrophils # (Auto) 7.8 TH/MM3 10.5 TH/MM3 Lymphocytes # (Auto) 3.4 TH/MM3 3.0 TH/MM3 Monocytes # (Auto) 0.7 TH/MM3 0.8 TH/MM3 Eosinophils # (Auto) 0.4 TH/MM3 0.3 TH/MM3 Basophils # (Auto) 0.1 TH/MM3 0.1 TH/MM3 CBC Comment DIFF FINAL DIFF FINAL Differential Comment Prothrombin Time 11.0 SEC Prothromb Time International 1.0 RATIO Ratio Activated Partial 30.3 SEC Thromboplast Time D-Dimer Quantitative (PE/DVT) 0.28 MG/L FEU Sodium Level 138 MEQ/L 138 MEQ/L Potassium Level 3.8 MEQ/L 3.8 MEQ/L Chloride Level 105 MEQ/L 106 MEQ/L Carbon Dioxide Level 26.1 MEQ/L 25.3 MEQ/L Anion Gap 7 MEQ/L 7 MEQ/L Blood Urea Nitrogen 9 MG/DL 6 MG/DL Creatinine 0.73 MG/DL 0.68 MG/DL Estimat Glomerular Filtration 91 ML/MIN 99 ML/MIN Rate Random Glucose 101 MG/DL 89 MG/DL Calcium Level 8.8 MG/DL 8.3 MG/DL Magnesium Level 2.1 MG/DL Total Creatine Kinase 59 U/L 464 U/L Troponin I 0.05 NG/ML Total Bilirubin 0.8 MG/DL Aspartate Amino Transf 59 U/L (AST/SGOT) Alanine Aminotransferase 26 U/L (ALT/SGPT) Alkaline Phosphatase 94 U/L Creatine Kinase MB 57.7 NG/ML Creatine Kinase MB % 12.4 % Total Protein 7.6 GM/DL Albumin 3.3 GM/DL Triglycerides Level 129 MG/DL Cholesterol Level 199 MG/DL LDL Cholesterol 146 MG/DL HDL Cholesterol 27.5 MG/DL Cholesterol/HDL Ratio 7.23 RATIO Imaging Last 24 hours Impressions Chest X-Ray 11/15/16 1430 Signed Impressions: Service Date/Time: Tuesday, November 15, 2016 14:42 - CONCLUSION: No acute disease. Macho Joshua MD Assessment and Plan Problem List: (1) STEMI (ST elevation myocardial infarction) Assessment and Plan: 2 weeks before return to work. No strenuous activity (2) 3-vessel coronary artery disease (3) Metabolic syndrome (4) Dyslipidemia (high LDL; low HDL) (5) Obesity Assessment and Plan: Counseled on diet (6) Tobacco abuse counseling Assessment and Plan: counseled (7) Stented coronary artery Assessment and Plan: cont ASA 81mg and Brilinta 90mg bid Assessment and Plan Probable discharge in AM Problem Qualifiers (1) STEMI (ST elevation myocardial infarction): Qualified Code: I21.3 - ST elevation myocardial infarction (STEMI), unspecified artery Miguel Ángel Urrutia MD November 16, 2016 09:32
--- NOTE | 2016-11-16 11:33 | PD.CONS ---
[facility] Reason for Consult Medical management Primary Care Physician Hola Melissa DO Diagnoses: (1) STEMI (ST elevation myocardial infarction) (2) Dyslipidemia (high LDL; low HDL) (3) Tobacco abuse (4) Morbid obesity History of Present Illness Ms. Crenshaw is a pleasant 36-year-old female with a history of tobacco use, strong family history of heart disease who presented to the emergency department on 11/15/2016 due to ongoing episodic chest pain that started on the day prior to this admission. On 11/14/2016 at around 7 PM, patient started noticing achiness on her upper chest radiating to her neck jaw and left shoulder. She did not have any nausea vomiting or diaphoresis but she felt hot. Patient's discomfort was episodic and lasted about 2-3 minutes at a time. She went to bed and slept through the night. On Wednesday she was planning to do some activities with her family. However she noticed worsening chest discomfort and each episode was longer. This prompted her to seek medical attention. On the way to the hospital ED patient complained of shortness of breath as she was walking from the parking lot to the emergency department entrance. She's never had this kind of symptoms before. Denies any fever chills cough. Denies any changes in bowel or bladder habits. Patient's initial EKG was unremarkable. However a repeat EKG showed inferior lead ST elevation. STEMI alert was called and Dr. Urrutia to patient's to cardiac catheterization lab. Drug-eluting stent was placed to the posterior lateral branch of the circumflex artery. Review of Systems Except as stated in HPI: all other systems reviewed are Neg Past Family Social History Allergies: Coded Allergies: No Known Allergies (Verified , 06/09/14) Past Medical History Migraine headache Past Surgical History , cholecystectomy Reported Medications Patient was not taking any medication on a regular basis other than Tylenol for headache. Family History Strong family history of heart disease. Mother had heart attack at age 58. Dad had heart attack in his 40s. Brother from heart attack at age 34 Social History Patient smokes 1 pack per day and has been smoking since she was 18. Denies any use of alcohol or illicit drugs. Physical Exam Vital Signs Vital Signs Date Time Temp Pulse Resp B/P Pulse Ox O2 Delivery O2 Flow Rate FiO2 11/16/16 11:12 98.9 83 18 127/84 96 5/15/17 11:12 83 11/16/16 10:04 72 11/16/16 09:56 73 11/16/16 08:03 72 11/16/16 07:39 77 11/16/16 07:39 98.9 77 18 124/90 96 11/16/16 06:00 77 11/16/16 05:00 69 11/16/16 04:00 74 11/16/16 03:00 98.6 73 18 132/82 97 11/16/16 03:00 74 11/16/16 02:00 70 11/16/16 01:00 67 11/16/16 00:00 65 11/15/16 23:00 98.3 73 18 129/82 96 11/15/16 23:00 82 11/15/16 22:00 78 11/15/16 21:00 72 11/15/16 20:00 72 11/15/16 19:15 98.1 77 18 124/80 98 11/15/16 19:15 75 11/15/16 18:00 85 11/15/16 17:12 97.8 82 19 125/85 96 11/15/16 17:00 97.6 82 19 125/85 96 11/15/16 17:00 77 11/15/16 15:24 24 11/15/16 14:32 97 Room Air 11/15/16 14:32 97 11/15/16 14:15 97.8 91 17 160/90 99 Physical Exam GENERAL: This is a well-nourished, well-developed patient, in no apparent distress. SKIN: No rashes, ecchymoses or lesions. Warm and dry. HEAD: Atraumatic. Normocephalic. No temporal or scalp tenderness. EYES: Pupils equal round and reactive. No injection or drainage. ENT: Nose without bleeding, purulent drainage or septal hematoma. Airway patent. NECK: Trachea midline. No lymphadenopathy. Supple, nontender, no meningeal signs. CARDIOVASCULAR: Regular rate and rhythm without murmurs, gallops, or rubs. No JVD. RESPIRATORY: Clear to auscultation. Breath sounds equal bilaterally. No wheezes , rales, or rhonchi. GASTROINTESTINAL: Abdomen soft, non-tender, nondistended. No guarding. MUSCULOSKELETAL: Extremities without clubbing, cyanosis, or edema. NEUROLOGICAL: Awake and alert. Cranial nerves II through XII intact. No focal neurological deficits. Normal speech. Laboratory Laboratory Tests Test 11/15/16 11/16/16 14:45 04:35 White Blood Count 12.4 14.8 Red Blood Count 4.71 4.70 Hemoglobin 14.0 14.1 Hematocrit 42.5 42.0 Mean Corpuscular Volume 90.2 89.3 Mean Corpuscular Hemoglobin 29.7 30.0 Mean Corpuscular Hemoglobin 32.9 33.6 Concent Red Cell Distribution Width 13.4 13.3 Platelet Count 206 216 Mean Platelet Volume 8.9 9.3 Neutrophils (%) (Auto) 63.1 71.3 Lymphocytes (%) (Auto) 27.4 20.5 Monocytes (%) (Auto) 5.9 5.6 Eosinophils (%) (Auto) 3.1 2.2 Basophils (%) (Auto) 0.5 0.4 Neutrophils # (Auto) 7.8 10.5 Lymphocytes # (Auto) 3.4 3.0 Monocytes # (Auto) 0.7 0.8 Eosinophils # (Auto) 0.4 0.3 Basophils # (Auto) 0.1 0.1 CBC Comment DIFF FINAL DIFF FINAL Differential Comment Prothrombin Time 11.0 Prothromb Time International 1.0 Ratio Activated Partial 30.3 Thromboplast Time D-Dimer Quantitative (PE/DVT) 0.28 Sodium Level 138 138 Potassium Level 3.8 3.8 Chloride Level 105 106 Carbon Dioxide Level 26.1 25.3 Anion Gap 7 7 Blood Urea Nitrogen 9 6 Creatinine 0.73 0.68 Estimat Glomerular Filtration 91 99 Rate Random Glucose 101 89 Calcium Level 8.8 8.3 Magnesium Level 2.1 Total Creatine Kinase 59 464 Troponin I 0.05 Total Bilirubin 0.8 Aspartate Amino Transf 59 (AST/SGOT) Alanine Aminotransferase 26 (ALT/SGPT) Alkaline Phosphatase 94 Creatine Kinase MB 57.7 Creatine Kinase MB % 12.4 Total Protein 7.6 Albumin 3.3 Triglycerides Level 129 Cholesterol Level 199 LDL Cholesterol 146 HDL Cholesterol 27.5 Cholesterol/HDL Ratio 7.23 Result Diagram: 11/16/16 0435 11/16/16 0435 Imaging Last Impressions Chest X-Ray 11/15/16 1430 Signed Impressions: Service Date/Time: Tuesday, November 15, 2016 14:42 - CONCLUSION: No acute disease. Macho Joshua MD Assessment and Plan Problem List: (1) STEMI (ST elevation myocardial infarction) ICD Code: I21.3 Status: Acute (2) Dyslipidemia (high LDL; low HDL) ICD Code: E78.4 Status: Acute (3) Morbid obesity ICD Code: E66.01 Status: Acute (4) Tobacco abuse ICD Code: Z72.0 Status: Acute Assessment and Plan Ms. Crenshaw is a 36-year-old female with a history of tobacco use, significant for history of heart disease who presented to the emergency department on 2016 due to ongoing chest pain. Her chest pain started on 11/14/2016 at around 7 PM. Her chest pain was achy in nature and radiated to her neck jaw and left shoulder. ED workup indicated STEMI and subsequently patient underwent urgent cardiac catheterization and drug-eluting stent placement to the posterior lateral branch of the circumflex artery. - STEMI - Dyslipidemia - Status post drug-eluting stent placement to the posterior lateral branch of the circumflex artery. - Continue carvedilol 3.125 mg twice a day, lisinopril 5 mg daily. - Continue aspirin 81 mg daily, Ticagrelor 90 mg twice a day. - Increase atorvastatin 10 mg daily at bedtime to 80 mg daily at bedtime. - Tobacco abuse - Morbid obesity - Counseled patient extensively regarding quitting smoking. Patient is motivated to quit smoking altogether. - Also advised patient regarding lifestyle modification with regards to morbid obesity. - Probable discharge on 11/17/2016. Patient is advised to go back to work in 2 weeks. Full code. Ambulation. Problem Qualifiers (1) STEMI (ST elevation myocardial infarction): Qualified Code: I21.3 - ST elevation myocardial infarction (STEMI), unspecified artery Moira Ponce DO November 16, 2016 11:33 am
--- NOTE | 2016-11-16 11:42 | EC ---
Study Study Date:11/16/2016 STUDY CONCLUSIONS SUMMARY - Left ventricle: The cavity size was normal. Wall thickness was normal. Systolic function was normal. The estimated ejection fraction was in the range of 50% to 55%. Wall motion was normal; there were no regional wall motion abnormalities. - Mitral valve: Mild regurgitation. - Tricuspid valve: Mild regurgitation. If LV function is below 40, please consider prescribing an ACEI or ARB or document rationale for non-use. PROCEDURE DATA STUDY STATUS: Elective. Procedure: Transthoracic echocardiography. Image quality was good. Scanning was performed from the parasternal, apical, and subcostal acoustic windows. Study completion: The patient tolerated the procedure well. Transthoracic echocardiography. M-mode, complete 2D, complete spectral Doppler, and color Doppler. Height: Height: 69in. Weight: Weight: 290.4lb. Body mass index: BMI: 43kg/m^2. Body surface area: BSA: 2.42m^2. Patient status: Inpatient. CARDIAC ANATOMY LEFT VENTRICLE: The cavity size was normal. Wall thickness was normal. Systolic function was normal. The estimated ejection fraction was in the range of 50% to 55%. Wall motion was normal; there were no regional wall motion abnormalities. AORTIC VALVE: Trileaflet; normal thickness leaflets. Doppler: Transvalvular velocity was within the normal range. There was no stenosis. No regurgitation. AORTA: Aortic root: The aortic root was normal in size. MITRAL VALVE: Structurally normal valve. Doppler: Transvalvular velocity was within the normal range. There was no evidence for stenosis. Mild regurgitation. Peak gradient: 3mm Hg (D). LEFT ATRIUM: The atrium was normal in size. RIGHT VENTRICLE: The cavity size was normal. Wall thickness was normal. PULMONIC VALVE: Doppler: Transvalvular velocity was within the normal range. There was no evidence for stenosis. No regurgitation. TRICUSPID VALVE: Structurally normal valve. Doppler: Transvalvular velocity was within the normal range. Mild regurgitation. PULMONARY ARTERY: The main pulmonary artery was normal-sized. Systolic pressure was within the normal range. RIGHT ATRIUM: The atrium was normal in size. PERICARDIUM: There was no pericardial effusion. SYSTEMIC VEINS: Inferior vena cava: The vessel was normal in size. Patient weight: 290.4lb _Ejection fraction:_ 65-75% _Fractional shortening:_ 32% up to 5Kg 5-11.5Kg 11.6-22.9Kg 23-45Kg 45-57Kg Aortic Root 7-13 <17 13-22 17-27 17-27 LA diam 6-13 <23 24-38 33-47 37-40 RVID 10-17 7-15 7-15 7-18 8-17 LVIDd 12-22 <32 24-38 33-47 37-40 LVPW 2-4 3-6 5-7 6-8 7-8 IVS 2-4 3-6 5-7 6-8 7-8 BASIC MEASUREMENTS ADULT Normal Left ventricle LV internal dimension, ED, chordal level, *56.5 mm 43-52 PLAX LV internal dimension, ES, chordal level, *44.6 mm 23-38 PLAX Fractional shortening, chordal level, PLAX *21 % >29 LV posterior wall thickness, ED 8.6 mm IVS/LVPW ratio, ED 1.26 <1.3 Ventricular septum Septal thickness, ED 10.8 mm Aortic valve Leaflet separation 20 mm 15-26 Left atrium Anterior-posterior dimension 38 mm Anterior-posterior dimension index 1.57 cm/m^2 <2.2 Right ventricle RV internal dimension, ED, PLAX 19.7 mm 19-38 BASIC MEASUREMENTS ADULT Normal Aortic valve Leaflet separation 20 mm 15-26 Aorta Root diameter, ED 35 mm 20-37 DOPPLER MEASUREMENTS ADULT Normal Aortic valve Peak velocity, S 143 cm/s Mitral valve Peak E-wave velocity 81.9 cm/s Peak A-wave velocity 80.5 cm/s Peak gradient, D 3 mm Hg Peak E/A ratio 1 Tricuspid valve Regurgitant peak velocity 189 cm/s Peak RV-RA gradient, S 14 mm Hg Maximal regurgitant velocity 189 cm/s LEGEND: Mean values are shown as u=mean value. Asterisk (*) villalobos values outside specified normal range. Prepared and signed by Franck Segundo [id number]
--- NOTE | 2016-11-16 14:14 | EKG ---
Date Performed: 11/15/2016 Time Performed: 14:28:06 PTAGE: 36 years EKG: Sinus rhythm MINIMAL ST DEPRESSION BORDERLINE ECG Since prior tracing, anterior T wave change are slightly more p rominent. PREVIOUS TRACING : 04/23/2013 15.31 DOCTOR: Magdiel Shetty Interpretating Date/Time 11/16/2016 14:12:33
--- NOTE | 2016-11-16 14:16 | EKG ---
Date Performed: 11/15/2016 Time Performed: 14:59:40 PTAGE: 36 years EKG: Sinus rhythm MARKED ST ELEVATION, CONSIDER INFERIOR INJURY ACUTE [place] Since prior tracing, inferior ST elevat ion with anterior T wave inversions are new from EKG taken only 30 minutes previous. Concern for acut e ST elevation [place]. Clinical correlation is required. PREVIOUS TRACING : 11/15/2016 14.28 DOCTOR: Magdiel Shetty Interpretating Date/Time 11/16/2016 14:14:31
--- NOTE | 2016-11-16 14:21 | EKG ---
Date Performed: 11/16/2016 Time Performed: 05:20:08 PTAGE: 36 years EKG: Sinus rhythm Prolonged QT interval Possible inferior infarct - age undetermined Anterolateral T wave changes are abnormal Since prior tracing, previously seen inferior ST elevations have resolved. Possible developm ent of small inferior T waves. Anterolateral ST changes are new. Clinical correlation is required. Ab normal ECG PREVIOUS TRACING : 11/15/2016 14.59 DOCTOR: Magdiel Shetty Interpretating Date/Time 11/16/2016 14:21:13
[2016-11-16] MEDS ORDERED: ATORVASTATIN 80 MG TAB PO SCH (21:00)
[2016-11-17] VITALS (13 sets, daily range): BP systolic 113–118; BP diastolic 70; PULSE 64–78; RESP 16–18; TEMP 97.9–98.3; O2SAT 95–97
[2016-11-17] MEDS ORDERED: ATOR1TAB18 PO (08:32)
[2016-11-17] MEDS ORDERED: LISI-519 PO (08:32)
[2016-11-17] MEDS ORDERED: BRIL90TA PO (08:32)
[2016-11-17] MEDS ORDERED: CARV3.125 PO (08:32)
[2016-11-17] MEDS ORDERED: ASPI81TA11 PO (08:32)
[2016-11-17] MEDS ORDERED: OCEA0.653 EACH NARE (08:33)
--- NOTE | 2016-11-17 08:38 | HHI.PR ---
Subjective Remarks Follow up for STEMI. Patient is currently doing well. No acute concerns. Objective Vitals Vital Signs Date Time Temp Pulse Resp B/P Pulse Ox O2 Delivery O2 Flow Rate FiO2 11/17/16 07:15 97.9 76 18 118/70 97 11/17/16 06:04 68 11/17/16 05:00 64 11/17/16 04:00 70 11/17/16 03:45 98.3 68 16 113/70 95 11/17/16 03:00 64 11/17/16 02:00 67 11/17/16 01:00 68 11/17/16 00:00 69 11/16/16 23:50 97.9 73 16 117/70 95 11/16/16 23:00 64 11/16/16 22:10 68 11/16/16 21:00 74 11/16/16 20:00 76 11/16/16 19:20 98.1 77 16 133/89 97 11/16/16 19:00 71 11/16/16 18:04 69 11/16/16 17:57 72 11/16/16 16:42 78 11/16/16 15:32 98.5 72 18 122/77 97 11/16/16 15:32 72 11/16/16 14:43 71 11/16/16 12:14 76 11/16/16 11:12 98.9 83 18 127/84 96 11/16/16 11:12 83 11/16/16 10:04 72 11/16/16 09:56 73 I/O 11/16/16 11/16/16 11/16/16 11/17/16 11/17/16 11/17/16 07:00 15:00 23:00 07:00 15:00 23:00 Intake Total 240 ml 960 ml 350 ml Output Total 2000 ml 400 ml Balance -1760 ml 960 ml -50 ml Intake Oral 240 ml 960 ml 350 ml IV Total 0 ml Output Urine Total 2000 ml 400 ml # Voids 4 3 # Bowel Movements 0 0 0 Result Diagram: 11/16/16 0435 11/16/16 0435 Imaging Last Impressions Chest X-Ray 11/15/16 1430 Signed Impressions: Service Date/Time: Tuesday, November 15, 2016 14:42 - CONCLUSION: No acute disease. Macho Joshua MD Objective Remarks GENERAL: AOX3, NAD SKIN: Warm and dry. HEAD: Normocephalic. EYES: No scleral icterus. No injection or drainage. NECK: Supple, trachea midline. No JVD or lymphadenopathy. CARDIOVASCULAR: Regular rate and rhythm without murmurs, gallops, or rubs. RESPIRATORY: Breath sounds equal bilaterally. No accessory muscle use. GASTROINTESTINAL: Abdomen soft, non-tender, nondistended. MUSCULOSKELETAL: No cyanosis, or edema. BACK: Nontender without obvious deformity. No CVA tenderness. Procedures Cardiac cath 11/15/2016 CONCLUSIONS: 1. Mildly elevated left ventricular end-diastolic pressure. 2. Mildly impaired left ventricular function. 3. Four-vessel coronary artery disease involving the left anterior descending, ramus intermediate branch, circumflex artery and right coronary artery. 4. Critical stenosis of the posterolateral branch of the circumflex artery. 5. Successful drug-eluting stent of the posterolateral branch. RECOMMENDATIONS: 1. Quit smoking. 2. Aspirin and Brilinta. 3. Will introduce TEOFILO inhibitor and beta levi as hemodynamics permit. 4. Check lipid values. 5. Initiate statin therapy. A/P Problem List: (1) STEMI (ST elevation myocardial infarction) ICD Code: I21.3 Status: Acute (2) Dyslipidemia (high LDL; low HDL) ICD Code: E78.4 Status: Acute (3) Morbid obesity ICD Code: E66.01 Status: Acute (4) Tobacco abuse ICD Code: Z72.0 Status: Acute Assessment and Plan Ms. Crenshaw is a 36-year-old female with a history of tobacco use, significant for history of heart disease who presented to the emergency department on 2016 due to ongoing chest pain. Her chest pain started on 11/14/2016 at around 7 PM. Her chest pain was achy in nature and radiated to her neck jaw and left shoulder. ED workup indicated STEMI and subsequently patient underwent urgent cardiac catheterization and drug-eluting stent placement to the posterior lateral branch of the circumflex artery. - STEMI - Dyslipidemia - Status post drug-eluting stent placement to the posterior lateral branch of the circumflex artery. - Continue carvedilol 3.125 mg twice a day, lisinopril 5 mg daily. - Continue aspirin 81 mg daily, Ticagrelor 90 mg twice a day. - Increased atorvastatin 10 mg daily at bedtime to 80 mg daily at bedtime. - Tobacco abuse - Morbid obesity - Counseled patient extensively regarding quitting smoking. Patient is motivated to quit smoking altogether. - Also advised patient regarding lifestyle modification with regards to morbid obesity. - discharge today 11/17/2016. Patient is advised to go back to work in 2 weeks. Full code. Ambulation. Discharge patient to home Condition on discharge: Improved Heart healthy Diet as tolerated Ad Corrine activity Rx written: Aspirin 81 mg daily Atorvastatin 80 mg daily at bedtime Carvedilol 3.125 mg by mouth twice a day Lisinopril 5 mg by mouth daily Ticagrelor 90 mg by mouth twice a day Saline nasal spray Follow-up with primary care physician within one week and cardiology within 2 weeks. Problem Qualifiers (1) STEMI (ST elevation myocardial infarction): Qualified Code: I21.3 - ST elevation myocardial infarction (STEMI), unspecified artery Moira Ponce DO November 17, 2016 8:38 am
[2016-11-17] MEDS: CARVEDILOL 3.125 MG TAB PO SCH (09:15)
[2016-11-17] MEDS: LISINOPRIL 5 MG TAB PO SCH (09:15)
[2016-11-17] MEDS: ASPIRIN 81 MG CHEW TAB PO SCH (09:15)
--- NOTE | 2016-11-17 09:55 | PD.CARD.PN ---
Subjective Subjective Remarks No complaints Objective Medications Current Medications Medications (Trade) Dose Ordered Sig/Pily Route Start Time Stop Time Status Last Admin (NS Flush) 2 ml UNSCH PRN IVF 11/15/16 14:30 (Tylenol) 325 mg Q4H PRN PO 11/15/16 17:00 11/15/16 19:38 (Percocet 5-325 Mg) 1 tab Q4H PRN PO 11/15/16 17:00 (Morphine Inj) 2 mg Q30M PRN IV PUSH 11/15/16 17:00 (Restoril) 15 mg HS PRN PO 11/15/16 17:00 (Aspirin Chew) 81 mg DAILY PO 11/16/16 09:00 11/17/16 09:15 (Brilinta) 90 mg BID PO 11/16/16 09:00 11/16/16 21:18 (Zofran Inj) 4 mg Q4H PRN IV 11/15/16 17:00 (Coreg) 3.125 mg BID PO 11/15/16 21:00 11/17/16 09:15 (Prinivil) 5 mg DAILY PO 11/16/16 09:00 11/17/16 09:15 (Lipitor) 80 mg HS PO 11/16/16 21:00 11/16/16 21:18 Vital Signs / I&O Vital Signs Date Time Temp Pulse Resp B/P Pulse Ox O2 Delivery O2 Flow Rate FiO2 11/17/16 07:15 97.9 76 18 118/70 97 11/17/16 07:00 65 11/17/16 06:04 68 11/17/16 05:00 64 11/17/16 04:00 70 11/17/16 03:45 98.3 68 16 113/70 95 11/17/16 03:00 64 11/17/16 02:00 67 11/17/16 01:00 68 11/17/16 00:00 69 11/16/16 23:50 97.9 73 16 117/70 95 11/16/16 23:00 64 11/16/16 22:10 68 11/16/16 21:00 74 11/16/16 20:00 76 11/16/16 19:20 98.1 77 16 133/89 97 11/16/16 19:00 71 11/16/16 18:04 69 11/16/16 17:57 72 11/16/16 16:42 78 11/16/16 15:32 98.5 72 18 122/77 97 11/16/16 15:32 72 11/16/16 14:43 71 11/16/16 12:14 76 11/16/16 11:12 98.9 83 18 127/84 96 11/16/16 11:12 83 11/16/16 10:04 72 11/16/16 09:56 73 I/O 11/16/16 11/16/16 11/16/16 11/17/16 11/17/16 11/17/16 07:00 15:00 23:00 07:00 15:00 23:00 Intake Total 240 ml 960 ml 350 ml Output Total 2000 ml 400 ml Balance -1760 ml 960 ml -50 ml Intake Oral 240 ml 960 ml 350 ml IV Total 0 ml Output Urine Total 2000 ml 400 ml # Voids 4 3 # Bowel Movements 0 0 0 Physical Exam GENERAL: Well developed, well nourished. No acute distress. HEENT: Jugular venous pressure is normal. CHEST: Lungs clear to auscultation bilaterally. Unlabored respiratory effort. CARDIAC: Regular rate and rhythm without S3, S4, or murmur. ABDOMEN: Soft, nontender, no hepatosplenomegaly. Bowel sounds present. EXTREMITIES: No clubbing, cyanosis, or edema. Right groin without bruising or hematoma Laboratory Laboratory Tests Test 11/15/16 11/16/16 14:45 04:35 Prothrombin Time 11.0 SEC Prothromb Time International 1.0 RATIO Ratio Activated Partial 30.3 SEC Thromboplast Time D-Dimer Quantitative (PE/DVT) 0.28 MG/L FEU Magnesium Level 2.1 MG/DL Troponin I 0.05 NG/ML White Blood Count 14.8 TH/MM3 Red Blood Count 4.70 MIL/MM3 Hemoglobin 14.1 GM/DL Hematocrit 42.0 % Mean Corpuscular Volume 89.3 FL Mean Corpuscular Hemoglobin 30.0 PG Mean Corpuscular Hemoglobin 33.6 % Concent Red Cell Distribution Width 13.3 % Platelet Count 216 TH/MM3 Mean Platelet Volume 9.3 FL Neutrophils (%) (Auto) 71.3 % Lymphocytes (%) (Auto) 20.5 % Monocytes (%) (Auto) 5.6 % Eosinophils (%) (Auto) 2.2 % Basophils (%) (Auto) 0.4 % Neutrophils # (Auto) 10.5 TH/MM3 Lymphocytes # (Auto) 3.0 TH/MM3 Monocytes # (Auto) 0.8 TH/MM3 Eosinophils # (Auto) 0.3 TH/MM3 Basophils # (Auto) 0.1 TH/MM3 CBC Comment DIFF FINAL Differential Comment Sodium Level 138 MEQ/L Potassium Level 3.8 MEQ/L Chloride Level 106 MEQ/L Carbon Dioxide Level 25.3 MEQ/L Anion Gap 7 MEQ/L Blood Urea Nitrogen 6 MG/DL Creatinine 0.68 MG/DL Estimat Glomerular Filtration 99 ML/MIN Rate Random Glucose 89 MG/DL Calcium Level 8.3 MG/DL Total Bilirubin 0.8 MG/DL Aspartate Amino Transf 59 U/L (AST/SGOT) Alanine Aminotransferase 26 U/L (ALT/SGPT) Alkaline Phosphatase 94 U/L Total Creatine Kinase 464 U/L Creatine Kinase MB 57.7 NG/ML Creatine Kinase MB % 12.4 % Total Protein 7.6 GM/DL Albumin 3.3 GM/DL Triglycerides Level 129 MG/DL Cholesterol Level 199 MG/DL LDL Cholesterol 146 MG/DL HDL Cholesterol 27.5 MG/DL Cholesterol/HDL Ratio 7.23 RATIO Assessment and Plan Problem List: (1) STEMI (ST elevation myocardial infarction) (2) 3-vessel coronary artery disease (3) Metabolic syndrome (4) Dyslipidemia (high LDL; low HDL) (5) Obesity (6) Tobacco abuse counseling (7) Stented coronary artery Assessment and Plan OK to discharge home. Problem Qualifiers (1) STEMI (ST elevation myocardial infarction): Qualified Code: I21.3 - ST elevation myocardial infarction (STEMI), unspecified artery Miguel Ángel Urrutia MD November 17, 2016 09:55
[2016-11-17] MEDS: TICAGRELOR 90 MG TAB PO SCH (10:25)
== END 2016-11-17 10:58 | disposition home or self-care (01) | DRG 247 ==
LOC: NEPE 14:12 → NEDA 15:20 → HCIN 16:57
PROVIDERS: ADMIT Internal Medicine Cardiovascular Disease; ATTEND Hospitalist
PROC: 027034Z Dilation of Coronary Artery, One Artery with Drug-eluting Intraluminal Device, Percutaneous Approach (ICD-10-PCS; principal; 2016-11-15)
PROC: 4A023N7 Measurement of Cardiac Sampling and Pressure, Left Heart, Percutaneous Approach (ICD-10-PCS; 2016-11-15)
PROC: B2111ZZ Fluoroscopy of Multiple Coronary Arteries using Low Osmolar Contrast (ICD-10-PCS; 2016-11-15)
PROC: B2151ZZ Fluoroscopy of Left Heart using Low Osmolar Contrast (ICD-10-PCS; 2016-11-15)
DX: I21.19 ST elevation (STEMI) myocardial infarction involving other coronary artery of inferior wall (principal); E88.81 Metabolic syndrome and other insulin resistance; E66.01 Morbid (severe) obesity due to excess calories; I25.10 Atherosclerotic heart disease of native coronary artery without angina pectoris; E78.5 Hyperlipidemia, unspecified; F17.210 Nicotine dependence, cigarettes, uncomplicated; Z82.49 Family history of ischemic heart disease and other diseases of the circulatory system; Z71.3 Dietary counseling and surveillance
CPT/HCPCS: 71010; 80048; 80053; 80061; 82550; 82552; 83735; 84484; 85025; 85379; 85610; 85730; 92928; 93005; 93306; 93458; 96374; C1725; C1760; C1769; C1874; C1887; C1893; G0269; J0583; J1644; J2250; J7030; Q9967

== ENCOUNTER 2017-06-28 17:26 | Observation (INO) | payer OTHER, MEDICAID ==
[~2017-06-28] VITALS: Ht 175.3 cm; Wt 120.0 kg
[~2017-06-28 17:26] MED LIST changes: +ASPI81TA23 PO; +ATOR80TA45 PO; +BRIL90TA PO; +CARV3.125 PO; -DICL75 PO; +LISI-519 PO; +OCEA0.653 EACH NARE
[2017-06-28 17:31] VITALS: BP 142/89; PULSE 67; RESP 16; TEMP 98.7; O2SAT 99
[2017-06-28] MEDS ORDERED: LEVO75TA3 PO (17:40)
[2017-06-28] MEDS ORDERED: ATOR20TA15 PO (17:40)
[2017-06-28] MEDS ORDERED: BUPR100T4 PO (17:40)
[2017-06-28] MEDS ORDERED: METF500T PO (17:40)
--- NOTE | 2017-06-28 17:40 | PD ---
HPI Chief Complaint: Chest Pain Time Seen by Provider: 17:40 Travel History International Travel<30 days: No Contact w/Intl Traveler<30days: No Traveled to known affect area: No History of Present Illness HPI 36-year-old female history of CAD, stenting of the posterior lateral branch in November of this year, presents emergency department for evaluation of left posterior shoulder pain. Patient states she has been nauseous intermittently for the last 2 days with bouts of light headedness. She developed this left shoulder pain up into her neck that was similar prior to her most recent MT. She states she chewed an aspirin and the throat sensation has since alleviated. Pain persists in her left shoulder. She states she does have history of shoulder injury, however this is not consistent with her shoulder injury pain. Denies any new injury. Denies any recent illnesses, fever, or chills. She has no other symptoms to report. 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 Urrutia in during her stenting November 15, 2016, the patient was found to have four-vessel cardiac arterial disease. PFSH Past Medical History Hx Anticoagulant Therapy: Yes Arthritis: Yes Asthma: Yes (CHILD) Anxiety: Yes Depression: No Cancer: No Cardiovascular Problems: Yes (MT 2017) Chest Pain: Yes Diabetes: No Diminished Hearing: No Genitourinary: No Neurologic: No Reproductive: No Migraines: Yes Sleep Apnea: No Thyroid Disease: Yes (HYPOTHYROID) : 1 Para: 1 Past Surgical History Abdominal Surgery: Yes Cardiac Surgery: No Section: Yes Cholecystectomy: Yes Ear Surgery: No Endocrine Surgery: No Eye Surgery: No Genitourinary Surgery: No Gynecologic Surgery: Yes Oral Surgery: No Prostatectomy: No Thoracic Surgery: No Other Surgery: Yes (GALLBLADDER) Social History Alcohol Use: Yes Tobacco Use: Yes Substance Use: No Allergies-Medications (Allergen,Severity, Reaction): Coded Allergies: No Known Allergies (Verified Adverse Reaction, Unknown, 06/28/17) Reported Meds & Prescriptions Reported Meds & Active Scripts Active Aspirin EC (Aspirin) 81 Mg Tabdr 81 Mg PO DAILY Brilinta (Ticagrelor) 90 Mg Tab 90 Mg PO BID Lisinopril 5 Mg Tab 5 Mg PO DAILY Coreg (Carvedilol) 3.125 Mg Tab 3.125 Mg PO BID Reported Atorvastatin (Atorvastatin Calcium) 20 Mg Tab 20 Mg PO HS Bupropion HCl 100 Mg Tab 100 Mg PO BID Metformin (Metformin HCl) 500 Mg Tab 500 Mg PO BIDPC Levothyroxine (Levothyroxine Sodium) 75 Mcg Tab 75 Mcg PO DAILY Review of Systems Except as stated in HPI: all other systems reviewed are Neg Physical Exam Narrative GENERAL: Well-nourished female patient, sitting up in bed in no acute distress. SKIN: Focused skin assessment warm/dry. HEAD: Atraumatic. Normocephalic. EYES: Pupils equal and round. No scleral icterus. No injection or drainage. ENT: No nasal bleeding or discharge. Mucous membranes pink and moist. NECK: Trachea midline. No JVD. CARDIOVASCULAR: Regular rate and rhythm. No murmur appreciated. RESPIRATORY: No accessory muscle use. Clear to auscultation. Breath sounds equal bilaterally. GASTROINTESTINAL: Abdomen soft, non-tender, nondistended. Hepatic and splenic margins not palpable. MUSCULOSKELETAL: No obvious deformities. No clubbing. No cyanosis. No edema. NEUROLOGICAL: Awake and alert. No obvious cranial nerve deficits. Motor grossly within normal limits. Normal speech. PSYCHIATRIC: Appropriate mood and affect; insight and judgment normal. Data Data Last Documented VS Vital Signs Date Time Temp Pulse Resp B/P (MAP) Pulse Ox O2 Delivery O2 Flow Rate FiO2 06/28/17 18:11 100 Room Air 06/28/17 18:11 63 18 06/28/17 17:31 98.7 142/89 (106) Orders Orders Electrocardiogram (06/28/17 ) Electrocardiogram (06/28/17 17:45) Basic Metabolic Panel (Bmp) (06/28/17 17:45) Ckmb (Isoenzyme) Profile (06/28/17 17:45) Complete Blood Count With Diff (06/28/17 17:45) Magnesium (Mg) (06/28/17 17:45) Prothrombin Time / Inr (Pt) (06/28/17 17:45) Act Partial Throm Time (Ptt) (06/28/17 17:45) Troponin I (06/28/17 17:45) Lipase (06/28/17 17:45) Chest, Single Ap (06/28/17 17:45) Ecg Monitoring (06/28/17 17:45) Bilateral Bp Monitoring (06/28/17 17:45) Iv Access Insert/Monitor (06/28/17 17:45) Oximetry (06/28/17 17:45) Oxygen Administration (06/28/17 17:45) Sodium Chloride 0.9% Flush (Ns Flush) (06/28/17 17:45) Nitroglycerin Sl (Nitrostat Sl) (06/28/17 17:45) Ondansetron Inj (Zofran Inj) (06/28/17 18:45) Admit Order (Ed Use Only) (06/28/17 19:09) Activity Bed Rest With Brp (06/28/17 19:09) Vital Signs (Adult) Q4H (06/28/17 19:09) Cardiac Rhythm .As Directed (06/28/17 19:09) Notify Dr: Other .PRN (06/28/17 19:09) Notify Dr. Parameters (06/28/17 19:09) Resp Oxygen Nasal Cannula (06/28/17 ) Diet Npo (06/29/17 Breakfast) Diet Heart Healthy (06/28/17 Dinner) Ckmb (Isoenzyme) Profile (06/28/17 21:00) Ckmb (Isoenzyme) Profile (06/29/17 00:00) Troponin I (06/28/17 21:00) Troponin I (06/29/17 00:00) Electrocardiogram (06/28/17 21:00) Electrocardiogram (06/29/17 00:00) ^ Obtain (06/28/17 19:09) Sodium Chloride 0.9% Flush (Ns Flush) (06/28/17 19:15) Sodium Chloride 0.9% Flush (Ns Flush) (06/28/17 21:00) Acetaminophen (Tylenol) (06/28/17 19:15) Ondansetron Inj (Zofran Inj) (06/28/17 19:15) Nitroglycerin Sl (Nitrostat Sl) (06/28/17 19:15) Waiter/Waitress Take Out / Telemetry NADIA.Q8H (06/28/17 19:09) Jamarcus Bilateral/Knee High NADIA.QSHIFT (06/28/17 19:09) Labs Laboratory Tests Test 06/28/17 17:55 White Blood Count 11.3 TH/MM3 Red Blood Count 4.14 MIL/MM3 Hemoglobin 12.9 GM/DL Hematocrit 37.7 % Mean Corpuscular Volume 91.1 FL Mean Corpuscular Hemoglobin 31.2 PG Mean Corpuscular Hemoglobin Concent 34.3 % Red Cell Distribution Width 13.0 % Platelet Count 253 TH/MM3 Mean Platelet Volume 8.9 FL Neutrophils (%) (Auto) 66.9 % Lymphocytes (%) (Auto) 25.1 % Monocytes (%) (Auto) 5.9 % Eosinophils (%) (Auto) 1.8 % Basophils (%) (Auto) 0.3 % Neutrophils # (Auto) 7.6 TH/MM3 Lymphocytes # (Auto) 2.8 TH/MM3 Monocytes # (Auto) 0.7 TH/MM3 Eosinophils # (Auto) 0.2 TH/MM3 Basophils # (Auto) 0.0 TH/MM3 CBC Comment DIFF FINAL Differential Comment Prothrombin Time 10.7 SEC Prothromb Time International Ratio 1.1 RATIO Activated Partial Thromboplast Time 27.3 SEC Blood Urea Nitrogen 7 MG/DL Creatinine 0.78 MG/DL Random Glucose 86 MG/DL Calcium Level 8.9 MG/DL Magnesium Level 1.7 MG/DL Sodium Level 138 MEQ/L Potassium Level 3.5 MEQ/L Chloride Level 104 MEQ/L Carbon Dioxide Level 26.1 MEQ/L Anion Gap 8 MEQ/L Estimat Glomerular Filtration Rate 85 ML/MIN Total Creatine Kinase 52 U/L Troponin I LESS THAN 0.02 NG/ML Lipase 100 U/L MDM Medical Decision Making Medical Screen Exam Complete: Yes Emergency Medical Condition: Yes Medical Record Reviewed: Yes Differential Diagnosis ACS versus vasospasm versus arthritic pain versus atypical chest pain versus chest wall pain versus pleuritic pain Narrative Course 36-year-old female presents to emergency department for evaluation. Patient's symptoms are consistent with symptoms prior to her MT earlier this year. Patient has already chewed an aspirin. She'll be given sublingual nitroglycerin here. And treated for nausea Laboratory Tests Test 06/28/17 17:55 White Blood Count 11.3 TH/MM3 Red Blood Count 4.14 MIL/MM3 Hemoglobin 12.9 GM/DL Hematocrit 37.7 % Mean Corpuscular Volume 91.1 FL Mean Corpuscular Hemoglobin 31.2 PG Mean Corpuscular Hemoglobin Concent 34.3 % Red Cell Distribution Width 13.0 % Platelet Count 253 TH/MM3 Mean Platelet Volume 8.9 FL Neutrophils (%) (Auto) 66.9 % Lymphocytes (%) (Auto) 25.1 % Monocytes (%) (Auto) 5.9 % Eosinophils (%) (Auto) 1.8 % Basophils (%) (Auto) 0.3 % Neutrophils # (Auto) 7.6 TH/MM3 Lymphocytes # (Auto) 2.8 TH/MM3 Monocytes # (Auto) 0.7 TH/MM3 Eosinophils # (Auto) 0.2 TH/MM3 Basophils # (Auto) 0.0 TH/MM3 CBC Comment DIFF FINAL Differential Comment Prothrombin Time 10.7 SEC Prothromb Time International Ratio 1.1 RATIO Activated Partial Thromboplast Time 27.3 SEC Blood Urea Nitrogen 7 MG/DL Creatinine 0.78 MG/DL Random Glucose 86 MG/DL Calcium Level 8.9 MG/DL Magnesium Level 1.7 MG/DL Sodium Level 138 MEQ/L Potassium Level 3.5 MEQ/L Chloride Level 104 MEQ/L Carbon Dioxide Level 26.1 MEQ/L Anion Gap 8 MEQ/L Estimat Glomerular Filtration Rate 85 ML/MIN Total Creatine Kinase 52 U/L Troponin I LESS THAN 0.02 NG/ML Lipase 100 U/L Labs are reviewed. Discussed the patient with my attending physician who agrees the patient would benefit from further evaluation and observation the chest pain center. Plan is discussed with the patient. She is in agreement with this plan of care. Diagnosis Primary Impression: Atypical chest pain Admitting Information Admitting Physician Requests: Observation Condition: Stable Cate Aguiar Jun 28, 2017 17:40
[2017-06-28] MEDS ORDERED: SODIUM CHLORIDE 0.9% FLUSH 10 ML FLUSH IVF PRN (17:45)
[2017-06-28] MEDS: NITROGLYCERIN 0.4 MG SL 25 TABS/BTL SL SCH ×3 (17:50→18:14)
[2017-06-28 18:07] LABS: AUTOMATED NEUTROPHIL # 7.6 TH/MM3 (1.8-7.7); BASOPHIL % 0.3 % (0.0-2.0); EOSINOPHIL # 0.2 TH/MM3 (0-0.4); EOSINOPHIL % 1.8 % (0.0-4.0); HEMATOCRIT 37.7 % (35.0-46.0); HEMOGLOBIN 12.9 GM/DL (11.6-15.3); LYMPH % 25.1 % (9.0-44.0); LYMPHOCYTE # 2.8 TH/MM3 (1.0-4.8); MEAN CELL VOLUME 91.1 FL (80.0-100.0); MEAN CORPUSCULAR HEMOGLOBIN 31.2 PG (27.0-34.0); MEAN CORPUSCULAR HGB CONC 34.3 % (32.0-36.0); MEAN PLATELET VOLUME 8.9 FL (7.0-11.0); MONO % 5.9 % (0.0-8.0); MONOCYTE # 0.7 TH/MM3 (0-0.9); NEUT % 66.9 % (16.0-70.0); PLATELET COUNT 253 TH/MM3 (150-450); RED BLOOD COUNT 4.14 MIL/MM3 (4.00-5.30); WHITE BLOOD COUNT 11.3 TH/MM3 (4.0-11.0)
[2017-06-28 18:11] VITALS: PULSE 63; RESP 18; O2SAT 97
[2017-06-28 18:21] LABS: INTERNATIONAL NORMALIZED RATIO 1.1 RATIO; PROTHROMBIN TIME - PATIENT 10.7 SEC (9.8-11.6)
--- NOTE | 2017-06-28 18:22 | RADRPT ---
EXAM DATE/TIME: 06/28/2017 17:56 [facility] COMPARISON: CHEST SINGLE AP, November 15, 2016, 14:42. INDICATIONS : Chest pain starting today MEDICAL HISTORY : Cardiovascular disease. SURGICAL HISTORY : Stent placement ENCOUNTER: Initial ACUITY: 1 day PAIN SCORE: 8/10 LOCATION: Bilateral chest FINDINGS: Single AP view of the chest. The lungs are clear. Cardiomediastinal silhouette within normal limits. No evidence of pleural effusion or pneumothorax. CONCLUSION: No acute cardiopulmonary disease identified. Desmond Dominguez MD on June 28, 2017 at 18:20 Board Certified Radiologist. This report was verified electronically.
[2017-06-28 18:27] LABS: BICARBONATE 26.1 MEQ/L (21.0-32.0); BLOOD UREA NITROGEN 7 MG/DL (7-18); CALCIUM 8.9 MG/DL (8.5-10.1); CHLORIDE 104 MEQ/L (98-107); CREATININE 0.78 MG/DL (0.50-1.00); GLOMERULAR FILTRATION RATE 85 ML/MIN (>89); GLUCOSE,RANDOM 86 MG/DL (74-106); LIPASE 100 U/L (73-393); MAGNESIUM 1.7 MG/DL (1.5-2.5); SODIUM (NA) 138 MEQ/L (136-145)
[2017-06-28 18:32] LABS: TROPONIN I LESS THAN 0.02 NG/ML (0.02-0.05)
[2017-06-28] MEDS ORDERED: ONDANSETRON HCL 4 MG/2 ML VIAL IV PUSH ONE (18:45)
[2017-06-28] MEDS ORDERED: SODIUM CHLORIDE 0.9% FLUSH 10 ML FLUSH IV FLUSH PRN (19:15)
[2017-06-28] MEDS ORDERED: ONDANSETRON HCL 4 MG/2 ML VIAL IV PUSH PRN (19:15)
[2017-06-28] MEDS ORDERED: NITROGLYCERIN 0.4 MG SL 25 TABS/BTL SL PRN (19:15)
[2017-06-28] MEDS ORDERED: ACETAMINOPHEN 500 MG CPLT PO PRN (19:15)
[2017-06-28 20:00] VITALS: O2SAT 99
[2017-06-28 20:01] VITALS: BP 132/79; PULSE 58; RESP 18; TEMP 97.8; O2SAT 99
[2017-06-28] MEDS: SODIUM CHLORIDE 0.9% FLUSH 10 ML FLUSH IV FLUSH SCH (21:00)
[2017-06-28 21:51] LABS: TROPONIN I LESS THAN 0.02 NG/ML (0.02-0.05)
[2017-06-28 23:00] VITALS: PULSE 58
[2017-06-29 00:38] VITALS: BP 113/69; PULSE 63; RESP 18; TEMP 98.1; O2SAT 97
[2017-06-29 00:51] LABS: TROPONIN I LESS THAN 0.02 NG/ML (0.02-0.05)
[2017-06-29 04:21] VITALS: BP 107/55; PULSE 57; RESP 18; TEMP 98.3; O2SAT 99
[2017-06-29 07:29] VITALS: BP 105/56; PULSE 63; RESP 20; TEMP 95.9; O2SAT 95
--- NOTE | 2017-06-29 07:52 | EKG ---
Date Performed: 06/28/2017 Time Performed: 17:43:26 PTAGE: 36 years EKG: Sinus rhythm NORMAL ECG Since PREVIOUS TRACING , no significant change noted PREVIOUS TRACIN11/16/2016 05.20 DOCTOR: Faina Schulz Interpretating Date/Time 06/29/2017 07:51:08
--- NOTE | 2017-06-29 07:53 | EKG ---
Date Performed: 06/28/2017 Time Performed: 21:51:08 PTAGE: 36 years EKG: Sinus rhythm NONSPECIFIC T-WAVE ABNORMALITY BORDERLINE ECG Since PREVIOUS TRACING , no significant change noted PREVIOUS TRACIN06/28/2017 17.43 DOCTOR: Faina Schulz Interpretating Date/Time 06/29/2017 07:52:38
--- NOTE | 2017-06-29 07:55 | EKG ---
Date Performed: 06/29/2017 Time Performed: 00:42:37 PTAGE: 36 years EKG: Sinus rhythm NORMAL ECG Since PREVIOUS TRACING , no significant change noted PREVIOUS TRACIN06/28/2017 21.51 DOCTOR: Faina Schulz Interpretating Date/Time 06/29/2017 07:53:34
[2017-06-29 08:06] VITALS: O2SAT 98
--- NOTE | 2017-06-29 08:49 | HHI.HP ---
HPI Primary Care Physician Hola Melissa DO Chief Complaint Chest pain History of Present Illness This is a 36-year-old female with history of CAD with stent, hypertension, hyperlipidemia, and tobacco abuse that presents to ED with her via private vehicle with complaint of nausea and chest pain. States that she has been nauseous for 2 days. No emesis. Denies abdominal pain. Denies dysuria. Then yesterday around 2:00 in the afternoon she developed a pain in the shoulder. This lasted about 4 hours. Was not worsened with movement. The nausea did not worsen. There is no shortness of breath or diaphoresis. Found nothing to worsen or improve the symptoms. She has history of CAD. She was a STEMI alert November 2016 and had cardiac catheterization revealing multivessel disease with a stent to the posterior lateral branch. Continues to follow Dr. Miguel Ángel Urrutia. States she had a stress test in his office several months ago but after the heart catheterization and was told that everything looked great. Voices compliance of medication. Continues to abuse tobacco however. She has been vaping for the past month and states that she has on a low nicotine setting at this time. Currently denies discomforts. States that this was a different discomfort from when she had the stent. Also states she has been active at work. 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 Denies . Review of Systems General: Patient denies fevers, chills recent, and recent travel HEENT: Patient denies headache, sore throat, difficulty swallowing. Cardiovascular: Has the chest discomfort as mentioned above. Denies sensation of heart beating rapidly or irregularly. No syncope. Denies diaphoresis. Respiratory: Denies shortness of breath or inspirational chest discomfort. Denies coughing wheezing or hemoptysis. GI: She has been nauseated but that has resolved since getting medication in the ED. Patient denies vomiting, diarrhea, abdominal pain, bloody stools. Musculoskeletal: Complains of posterior left shoulder pain but this has not worsened with movement. Patient denies joint pain or edema. Denies calf pain or edema. Neurovascular: Patient denies numbness, tingling, weakness in extremities. Denies headache. Endocrine: Denies polyuria and polydipsia. Hematologic: Denies easy bruising. Skin: Denies rash or itching. Past Family Social History Allergies: Coded Allergies: No Known Allergies (Verified Allergy, Unknown, 06/29/17) Past Medical History CAD with four-vessel disease and stent of the posterior lateral branch November 2016. Hypertension, hyperlipidemia, diabetes, and tobacco abuse. Past Surgical History Cardiac catheterization with stenting November 2016. Cholecystectomy. Reported Medications Reported Meds & Active Scripts Active Aspirin EC (Aspirin) 81 Mg Tabdr 81 Mg PO DAILY Brilinta (Ticagrelor) 90 Mg Tab 90 Mg PO BID Lisinopril 5 Mg Tab 5 Mg PO DAILY Coreg (Carvedilol) 3.125 Mg Tab 3.125 Mg PO BID Reported Atorvastatin (Atorvastatin Calcium) 20 Mg Tab 20 Mg PO HS Bupropion HCl 100 Mg Tab 100 Mg PO BID Metformin (Metformin HCl) 500 Mg Tab 500 Mg PO BIDPC Levothyroxine (Levothyroxine Sodium) 75 Mcg Tab 75 Mcg PO DAILY Active Ordered Medications Current Medications Medications (Trade) Dose Ordered Sig/Pily Route Start Time Stop Time Status Last Admin (NS Flush) 2 ml UNSCH PRN IVF 06/28/17 17:45 (NS Flush) 2 ml UNSCH PRN IV FLUSH 06/28/17 19:15 (NS Flush) 2 ml BID IV FLUSH 06/28/17 21:00 (Tylenol) 500 mg Q4H PRN PO 06/28/17 19:15 (Zofran Inj) 4 mg Q6H PRN IV PUSH 06/28/17 19:15 (Nitrostat Sl) 0.4 mg Q5M PRN SL 06/28/17 19:15 Family History There is family history of CAD. Social History Patient was smoking cigarettes but for the past month has been vaping. States she has been tapering the nicotine dose and is at a low level at this time. Physical Exam Vital Signs Vital Signs Date Time Temp Pulse Resp B/P (MAP) Pulse Ox O2 Delivery O2 Flow Rate FiO2 06/29/17 07:29 95.9 63 20 105/56 (72) 95 06/29/17 04:21 98.3 57 18 107/55 (72) 99 06/29/17 00:38 98.1 63 18 113/69 (84) 97 06/28/17 23:00 58 06/28/17 20:01 97.8 58 18 132/79 (96) 99 06/28/17 20:00 99 06/28/17 18:11 100 Room Air 12/25/17 18:11 63 18 97 Room Air 06/28/17 17:31 98.7 67 16 142/89 (106) 99 Physical Exam GENERAL: This is a well-nourished, well-developed patient, in no apparent distress. Patient speaks in clear complete sentences. Patient is pleasant. HEENT: Head is atraumatic and normocephalic. Neck is supple without lymphadenopathy and trachea is midline. No JVD or carotid bruits. CARDIOVASCULAR: Regular rate and rhythm without murmurs, gallops, or rubs. RESPIRATORY: Clear to auscultation. Breath sounds equal bilaterally. No wheezes , rales, or rhonchi. Chest wall is nontender. No use of accessory muscles. GASTROINTESTINAL: Abdomen is nontender, nondistended. Abdomen soft. No obvious pulsatile mass or bruit. No CVA tenderness. Strong femoral pulses bilaterally. Normal bowel sounds in all quadrants. MUSCULOSKELETAL: Patient is moving upper and lower extremities freely. No calf tenderness or edema, no Homans sign. Strong pulses in upper and lower extremities. NEUROLOGICAL: Patient is alert and oriented. Cranial nerves 2-12 are grossly intact. No focal deficits and speech is clear. SKIN: No rash and turgor is normal. Laboratory Laboratory Tests Test 06/28/17 17:55 06/28/17 21:00 06/29/17 00:00 White Blood Count 11.3 Red Blood Count 4.14 Hemoglobin 12.9 Hematocrit 37.7 Mean Corpuscular Volume 91.1 Mean Corpuscular Hemoglobin 31.2 Mean Corpuscular Hemoglobin Concent 34.3 Red Cell Distribution Width 13.0 Platelet Count 253 Mean Platelet Volume 8.9 Neutrophils (%) (Auto) 66.9 Lymphocytes (%) (Auto) 25.1 Monocytes (%) (Auto) 5.9 Eosinophils (%) (Auto) 1.8 Basophils (%) (Auto) 0.3 Neutrophils # (Auto) 7.6 Lymphocytes # (Auto) 2.8 Monocytes # (Auto) 0.7 Eosinophils # (Auto) 0.2 Basophils # (Auto) 0.0 CBC Comment DIFF FINAL Differential Comment Prothrombin Time 10.7 Prothromb Time International Ratio 1.1 Activated Partial Thromboplast Time 27.3 Blood Urea Nitrogen 7 Creatinine 0.78 Random Glucose 86 Calcium Level 8.9 Magnesium Level 1.7 Sodium Level 138 Potassium Level 3.5 Chloride Level 104 Carbon Dioxide Level 26.1 Anion Gap 8 Estimat Glomerular Filtration Rate 85 Total Creatine Kinase 52 45 45 Troponin I LESS THAN 0.02 LESS THAN 0.02 LESS THAN 0.02 Lipase 100 Result Diagram: 06/28/17175406/28/171754 Imaging Last 24 hours Impressions Chest X-Ray 06/28/171744 Signed Impressions: Service Date/Time: Wednesday, June 28, 2017 17:56 - CONCLUSION: No acute cardiopulmonary disease identified. Desmond Dominguez MD Course EKG is sinus rhythm without significant ST segment depressions or elevations. Flipped T waves are noted in the 3 and V2. Caprini VTE Risk Assessment Caprini VTE Risk Assessment: No/Low Risk (score <= 1) Caprini Risk Assessment Model Point Value = 1 Point Value = 2 Point Value = 3 Point Value = 5 Age 41-60 Minor surgery BMI > 25 kg/m2 Swollen legs Varicose veins or History of unexplained or recurrent spontaneous Oral contraceptives or hormone replacement Sepsis (< 1 month) Serious lung disease, including pneumonia (< 1 month) Abnormal pulmonary function Acute myocardial infarction Congestive heart failure (< 1 month) History of inflammatory bowel disease Medical patient at bed rest Age 61-74 Arthroscopic surgery Major open surgery (> 45 min) Laparoscopic surgery (> 45 min) Malignancy Confined to bed (> 72 hours) Immobilizing plaster cast Central venous access Age >= 75 History of VTE Family history of VTE Factor V Leiden Prothrombin [id number] Lupus anticoagulant Anticardiolipin antibodies Elevated serum homocysteine Heparin-induced thrombocytopenia Other congenital or acquired thrombophilia Stroke (< 1 month) Elective arthroplasty Hip, pelvis, or leg fracture Acute spinal cord injury (< 1 month) Prophylaxis Regimen Total Risk Factor Score Risk Level Prophylaxis Regimen 0-1 Low Early ambulation 2 Moderate Order ONE of the following: *Sequential Compression Device (SCD) *Heparin 5000 units SQ BID 3-4 Higher Order ONE of the following medications: *Heparin 5000 units SQ TID *Enoxaparin/Lovenox 40 mg SQ daily (WT < 150 kg, CrCl > 30 mL/min) *Enoxaparin/Lovenox 30 mg SQ daily (WT < 150 kg, CrCl > 10-29 mL/min) *Enoxaparin/Lovenox 30 mg SQ BID (WT < 150 kg, CrCl > 30 mL/min) AND/OR *Sequential Compression Device (SCD) 5 or more Highest Order ONE of the following medications: *Heparin 5000 units SQ TID (Preferred with Epidurals) *Enoxaparin/Lovenox 40 mg SQ daily (WT < 150 kg, CrCl > 30 mL/min) *Enoxaparin/Lovenox 30 mg SQ daily (WT < 150 kg, CrCl > 10-29 mL/min) *Enoxaparin/Lovenox 30 mg SQ BID (WT < 150 kg, CrCl > 30 mL/min) AND *Sequential Compression Device (SCD) Assessment and Plan Assessment and Plan * Atypical chest pain: Patient does have heart disease. Had heart catheterization May revealing multivessel disease with stent of the posterior lateral branch. Patient has had EKGs and cardiac enzymes for ruling out purposes. She was seen by Dr. Schulz cardiology and the chest pain center. 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 Miguel Ángel Urrutia has requested an exercise stress test and she should be discharged that okay. Notify one of his associates if the stress test is abnormal. * CAD: We'll reassess with stress testing. Resume her medication. Follow-up with her gang ripsaw operator. Quit using nicotine products. * Hypertension: Continue current medication. * Hyperlipidemia: Continue current medication. * Tobacco abuse: Patient has been counseled for some smoking cessation. Chato Richey Jun 29, 2017 08:49
[2017-06-29] MEDS ORDERED: DEXTROSE 50% IN WATER 50 ML VIAL(D50) IV PUSH PRN (09:00)
[2017-06-29] MEDS ORDERED: GLUCAGON 1 MG/ML VIAL OTHER PRN (09:00)
--- NOTE | 2017-06-29 09:40 | HHI.DCPOC ---
Discharge Care Plan Diagnosis: (1) Atypical chest pain (2) CAD (coronary artery disease) (3) Stented coronary artery (4) Hyperlipidemia (5) Hypertension (6) Tobacco abuse Goals to Promote Your Health * To prevent worsening of your condition and complications * To maintain your health at the optimal level Directions to Meet Your Goals Take your medications as prescribed Follow your dietary instruction Follow activity as directed Keep your appointments as scheduled Take your immunizations and boosters as scheduled If your symptoms worsen call your PCP, if no PCP go to Urgent Care Center or Emergency Room Smoking is Dangerous to Your Health. Avoid second hand smoke Call the 24-hour hour crisis hotline for domestic abuse at Chato Richey Jun 29, 2017 09:40
[2017-06-29] MEDS: SODIUM CHLORIDE 0.9% FLUSH 10 ML FLUSH IV FLUSH SCH (09:43)
[2017-06-29] MEDS ORDERED: TICAGRELOR 90 MG TAB PO SCH (09:45)
[2017-06-29] MEDS ORDERED: CARVEDILOL 3.125 MG TAB PO SCH (09:45)
[2017-06-29] MEDS ORDERED: INSULIN ASPART SUPPLEMENTAL SCALE SQ SCH (12:00)
--- NOTE | 2017-06-29 12:51 | TR ---
Date Performed: 06/29/2017 Time Performed: 09:12:19 DOCTOR: Faina Schulz DRUG LIST: CLINICAL HISTORY: CHEST PAIN REASON FOR TEST: REASON FOR ENDING: OBSERVATION: CONCLUSION: SANCHO PROTOCOL ETT. NO CP OR SOB. TEST STOPPED AFTER EXCEEDING GOAL HR SECONDARY TO LEG FATIGUE.Maximum TN=710 % Max HR Achieved=86.0% Maximum SL=964/62 Total Exercise Time=9:01 COMMENTS:
[2017-06-29] MEDS ORDERED: buPROPion HCL 100 MG TAB PO SCH (21:00)
[2017-06-29] MEDS ORDERED: ATORVASTATIN 20 MG TAB PO SCH (21:00)
[2017-06-30] MEDS ORDERED: ASPIRIN EC 81 MG TABEC PO SCH (09:00)
== END 2017-06-29 11:09 | disposition home or self-care (01) ==
LOC: NEPC 17:26 → NEDA 19:12 → NEPFCDU 19:39
PROVIDERS: ADMIT Internal Medicine Cardiovascular Disease; ATTEND Internal Medicine Cardiovascular Disease
DX: R07.9 Chest pain, unspecified (principal); I25.10 Atherosclerotic heart disease of native coronary artery without angina pectoris; Z95.5 Presence of coronary angioplasty implant and graft; E78.5 Hyperlipidemia, unspecified; I10 Essential (primary) hypertension; F17.210 Nicotine dependence, cigarettes, uncomplicated; R11.0 Nausea; R42 Dizziness and giddiness; M25.512 Pain in left shoulder; Z79.01 Long term (current) use of anticoagulants; M19.90 Unspecified osteoarthritis, unspecified site; F41.9 Anxiety disorder, unspecified; E03.9 Hypothyroidism, unspecified; E11.9 Type 2 diabetes mellitus without complications; Z79.84 Long term (current) use of oral hypoglycemic drugs
CPT/HCPCS: 71010; 80048; 82550; 83690; 83735; 84484; 85025; 85610; 85730; 93005; 93017; 96374; 99285; G0378; J2405

== ENCOUNTER 2017-09-07 09:56 | Emergency (ER) | payer OTHER ==
[~2017-09-07] VITALS: Ht 175.3 cm; Wt 121.0 kg
[~2017-09-07 09:56] MED LIST changes: +ATOR20TA15 PO; -ATOR80TA45 PO; +BUPR100T4 PO; -HYDR-3533 PO; +LEVO75TA3 PO; -LISI-519 PO; +METF500T PO; -OCEA0.653 EACH NARE
[2017-09-07 10:01] VITALS: BP 135/72; PULSE 73; RESP 16; TEMP 99.1; O2SAT 97
--- NOTE | 2017-09-07 10:33 | RADRPT ---
EXAM DATE/TIME: 09/07/2017 10:17 [facility] COMPARISON: No previous studies available for comparison. INDICATIONS : Right hand 3rd 4th digit pain, hand got stuck between 2 heavy boxes. MEDICAL HISTORY : None. SURGICAL HISTORY : None. ENCOUNTER: Initial ACUITY: 1 day PAIN SCORE: 10/10 LOCATION: Right 3rd and 4th digits FINDINGS: Three view examination of the right hand demonstrates no soft tissue swelling, dislocation, or fractu re. The carpal bones appear intact. The interphalangeal and metacarpophalangeal joints are intact. Bony mineralization is normal. CONCLUSION: 1. No acute fracture or dislocation. Jose Elias Martinez MD on September 07, 2017 at 10:32 Board Certified Radiologist. This report was verified electronically.
--- NOTE | 2017-09-07 11:44 | PD ---
HPI Chief Complaint: Musculoskeletal Complaint Time Seen by Provider: 11:18 Travel History International Travel<30 days: No Contact w/Intl Traveler<30days: No Traveled to known affect area: No History of Present Illness HPI This is a 36-year-old female here with a to her right hand when her hand was trapped between 2 heavy boxes while at work. Patient reports pain when the area is palpated. Pain is slightly reduced at rest. Denies paresthesia or weakness of the extremities. Symptom severity is mild to moderate. PFSH Past Medical History Hx Anticoagulant Therapy: Yes Arthritis: Yes Asthma: Yes Anxiety: Yes Depression: No Cancer: No Cardiovascular Problems: Yes ([place] 2017) High Cholesterol: Yes Chest Pain: Yes Diabetes: No Diminished Hearing: No Genitourinary: No Neurologic: No Reproductive: No Migraines: Yes Myocardial Infarction: Yes Sleep Apnea: No Thyroid Disease: Yes (HYPOTHYROID) Tetanus Vaccination: Unknown Influenza Vaccination: No ?: Unknown LMP: 02 09 18 : 1 Para: 1 Past Surgical History Abdominal Surgery: Yes Cardiac Surgery: No Section: Yes Cholecystectomy: Yes Ear Surgery: No Endocrine Surgery: No Eye Surgery: No Genitourinary Surgery: No Gynecologic Surgery: Yes Oral Surgery: No Prostatectomy: No Thoracic Surgery: No Other Surgery: Yes (GALLBLADDER) Social History Alcohol Use: Yes Tobacco Use: Yes (07/08 ppd) Substance Use: No Allergies-Medications (Allergen,Severity, Reaction): Coded Allergies: No Known Allergies (Verified Allergy, Unknown, 09/07/17) Reported Meds & Prescriptions Reported Meds & Active Scripts Active Aspirin EC (Aspirin) 81 Mg Tabdr 81 Mg PO DAILY Brilinta (Ticagrelor) 90 Mg Tab 90 Mg PO BID Coreg (Carvedilol) 3.125 Mg Tab 3.125 Mg PO BID Reported Atorvastatin (Atorvastatin Calcium) 20 Mg Tab 20 Mg PO HS Bupropion HCl 100 Mg Tab 100 Mg PO BID Metformin (Metformin HCl) 500 Mg Tab 500 Mg PO BIDPC Levothyroxine (Levothyroxine Sodium) 75 Mcg Tab 75 Mcg PO DAILY Review of Systems General / Constitutional: No: Fever Neurologic: No: Weakness Physical Exam Narrative GENERAL: Alert and well-appearing 36-year-old female. No distress. SKIN: Warm and dry. HEAD: Normocephalic. EYES: No injection or drainage. NECK: Supple MUSCULOSKELETAL: No cyanosis, or edema. Right hand: +TTP right hand dorsal aspect over the third and fourth MCP joints. No deformity. No noticeable swelling. Patient is able to flex and extend the fingers. Normal sensation. Brisk cap refill. Data Data Last Documented VS Vital Signs Date Time Temp Pulse Resp B/P (MAP) Pulse Ox O2 Delivery O2 Flow Rate FiO2 09/07/17 10:01 99.1 73 16 135/72 (93) 97 Orders Orders Ed Urine Pregnancytest Poc (09/07/17 10:03) Hand, Complete ([id number]) (09/07/17 ) MDM Medical Decision Making Medical Screen Exam Complete: Yes Emergency Medical Condition: Yes Differential Diagnosis Contusion, fracture, sprain Narrative Course 36-year-old female here with a minor contusion to her right hand caused by heavy boxes while working at [employer]. The extremity is neurovascularly intact. X-rays negative for fracture dislocation. Diagnosis Primary Impression: Contusion Qualified Codes: S60.221A - Contusion of right hand, initial encounter Referrals: Primary Care Physician Additional Instructions: Ice and elevate the extremity. Tylenol as needed for pain. Follow-up with her primary doctor. Disposition: 01 DISCHARGE HOME Condition: Stable Sandee Soler Sep 07, 2017 11:44
== END 2017-09-07 11:51 | disposition home or self-care (01) ==
LOC: PHED 09:56 → PHEFT 11:51
DX: S60.221A Contusion of right hand, initial encounter (principal); W23.1XXA Caught, crushed, jammed, or pinched between stationary objects, initial encounter; Y92.512 Supermarket, store or market as the place of occurrence of the external cause; Y99.0 Civilian activity done for income or pay; M19.90 Unspecified osteoarthritis, unspecified site; J45.909 Unspecified asthma, uncomplicated; I25.2 Old myocardial infarction; E03.9 Hypothyroidism, unspecified; F17.210 Nicotine dependence, cigarettes, uncomplicated; Z79.82 Long term (current) use of aspirin
CPT/HCPCS: 73130; 84703; 99283